=== PATIENT | female | born 1975 | race Caucasian/White ===

== ENCOUNTER 2018-01-22 11:29 | Inpatient (IN) | payer OTHER ==
[2018-01-22 12:58] LABS: Basophils % (A) 0 %; Eosinophils # (A) 0.1 k/uL (0-0.7); Eosinophils % (A) 1 %; HCT 43.2 % (34.0-46.0); Lymphocytes # (A) 0.6 k/uL (1.0-4.8); Lymphocytes % (A) 5 %; MCH 30.8 pg (25.0-35.0); MCHC 34.8 g/dL (31.0-37.0); MCV 88.7 fL (80.0-100.0); Mean Platelet Volume 7.7; Monocytes # (A) 0.3 k/uL (0-1.0); Monocytes % (A) 2 %; Neutrophils % (A) 91 %; Platelet Count 181 k/uL (150-450); RBC 4.87 m/uL (3.80-5.40); RDW 12.8 % (11.5-15.5); WBC 12.1 k/uL (3.8-10.6)
[2018-01-22 13:07] LABS: Appearance,Urine Cloudy (Clear); Bacteria,Urine Moderate /hpf; Bilirubin,Urine Negative (Negative); Blood,Urine Small (Negative); Color,Urine Yellow; Glucose,Urine (UA) Negative (Negative); Ketones,Urine Trace (Negative); Leukocyte Esterase,Urine Large (Negative); Mucus,Urine Occasional /hpf; Nitrite,Urine Negative (Negative); PH, Urine 5.5 (5.0-8.0); Protein,Urine 1+ (Negative); RBC,Urine 4 /hpf (0-5); Squamous Epithelial Cell,Urine 10 /hpf (0-4); Urobilinogen,Urine <2.0 mg/dL (<2.0); WBC,Urine 27 /hpf (0-5)
[2018-01-22 13:11] LABS: ALT 40 U/L (9-52); AST 41 U/L (14-36); Albumin 3.5 g/dL (3.5-5.0); Alkaline Phosphatase 98 U/L (38-126); Amylase <30 U/L (30-110); Anion Gap 11 mmol/L; Blood Urea Nitrogen 17 mg/dL (7-17); Calcium 9.4 mg/dL (8.4-10.2); Carbon Dioxide 25 mmol/L (22-30); Chloride 98 mmol/L (98-107); Glucose 164 mg/dL (74-99); Lipase 17 U/L (23-300); Potassium 2.8 mmol/L (3.5-5.1); Sodium 134 mmol/L (137-145); Total Protein 6.5 g/dL (6.3-8.2)
[2018-01-22] MEDS ORDERED: POTASSIUM CHLORIDE 2 MEQ/ML 20 ML VIAL IV STA (13:33)
[2018-01-22] MEDS ORDERED: PANTOPRAZOLE 40 MG/10 ML VIAL IVP ONE (13:33)
[2018-01-22] MEDS ORDERED: ONDANSETRON 4 MG/2 ML VIAL IVP STA (13:34)
--- NOTE | 2018-01-22 13:51 | XR ---
EXAMINATION TYPE: XR KUB DATE OF EXAM: 01/22/2018 COMPARISON: NONE HISTORY: Left upper quadrant pain TECHNIQUE: One view abdominal series FINDINGS: The osseous structures are intact. The bowel gas pattern is nonspecific. Lung bases are clear. IMPRESSION: 1. Nonspecific abdomen.
[2018-01-22] MEDS: POTASSIUM CHLORIDE 10 MEQ in WATER FOR INJECTION 1 100ML.BAG IVPB SCH ×3 (14:04→17:28)
[2018-01-22] MEDS ORDERED: NALOXONE 0.4 MG/ML 1 ML VIAL IV PRN (14:10)
--- NOTE | 2018-01-22 14:10 | ED ---
Abdominal Pain HPI - General Chief Complaint: Abdominal Pain Stated Complaint: Hematemesis Time Seen by Provider: 01/22/18 12:50 Source: patient, RN notes reviewed Mode of arrival: ambulatory Limitations: no limitations - History of Present Illness Initial Comments: Patient is a pleasant 42-year-old female presenting to the emergency department with hematemesis. Patient does have a history of alcohol use and has been sober for the past approximate 6 months. Patient has been vomiting daily for approximately 6 months. Patient did have a episode of hematemesis around a week ago. Patient has had several episodes today. Patient has discomfort in the epigastric region. - Related Data Home Medications Medication Instructions Recorded Confirmed Budesonide-Formot 160-4.5 Mcg 2 puff INHALATION RT-BID 01/22/18 01/22/18 [Symbicort 160-4.5 Mcg Inhaler] Gabapentin [Neurontin] 300 mg PO TID 01/22/18 01/22/18 Hydrochlorothiazide 25 mg PO DAILY 01/22/18 01/22/18 Metoprolol Succinate [Toprol XL] 25 mg PO DAILY 01/22/18 01/22/18 Topiramate [Topamax] 25 mg PO HS 01/22/18 01/22/18 buPROPion [Wellbutrin] 100 mg PO BID 01/22/18 01/22/18 busPIRone HCL [Buspar] 30 mg PO BID 01/22/18 01/22/18 Allergies Allergy/AdvReac Type Severity Reaction Status Date / Time ELLA Inhibitors Allergy Rash/Hives Verified 01/22/18 13:21 Review of Systems ROS Statement: Those systems with pertinent positive or pertinent negative responses have been documented in the HPI. ROS Other: All systems not noted in ROS Statement are negative. Constitutional: Denies: fever Eyes: Denies: eye pain ENT: Denies: ear pain Respiratory: Denies: cough Cardiovascular: Denies: chest pain Endocrine: Denies: fatigue Gastrointestinal: Reports: abdominal pain, nausea, hematemesis Genitourinary: Denies: dysuria Skin: Denies: rash Neurological: Denies: weakness Past Medical History Past Medical History: Asthma, Hypertension, Liver Disease History of Any Multi-Drug Resistant Organisms: None Reported Past Surgical History: No Surgical Hx Reported Past Psychological History: Anxiety, Depression Smoking Status: Current every day smoker Past Alcohol Use History: None Reported Past Drug Use History: Marijuana General Exam Limitations: no limitations General appearance: alert, in no apparent distress Head exam: Present: atraumatic Eye exam: Present: normal appearance ENT exam: Present: normal oropharynx Neck exam: Present: normal inspection Respiratory exam: Present: normal lung sounds bilaterally Cardiovascular Exam: Present: regular rate, normal rhythm Expanded Peripheral pulses: 2+: Dorsalis Pedis (R), Dorsalis Pedis (L) GI/Abdominal exam: Present: soft, tenderness (Mild epigastric tenderness), normal bowel sounds. Absent: distended, guarding, rebound, rigid, pulsatile mass Extremities exam: Present: normal inspection. Absent: pedal edema, calf tenderness Neurological exam: Present: alert Psychiatric exam: Present: normal affect, normal mood Skin exam: Present: normal color Course Vital Signs 01/22/18 01/22/18 11:39 12:50 Temperature 97.9 F 98.9 F Pulse Rate 70 66 Respiratory 18 18 Rate Blood Pressure 106/69 111/78 O2 Sat by Pulse 99 100 Oximetry Medical Decision Making - Medical Decision Making Patient reevaluated and updated. Case discussed in detail with Dr. Agosto, who will admit for hospital call. - Lab Data Result diagrams: 01/22/18 12:40 01/22/18 12:39 Lab Results 01/22/18 01/22/18 Range/Units 12:39 12:40 WBC 12.1 H (3.8-10.6) k/uL RBC 4.87 (3.80-5.40) m/uL Hgb 15.0 (11.4-16.0) gm/dL Hct 43.2 (34.0-46.0) % MCV 88.7 (80.0-100.0) fL MCH 30.8 (25.0-35.0) pg MCHC 34.8 (31.0-37.0) g/dL RDW 12.8 (11.5-15.5) % Plt Count 181 (150-450) k/uL Neutrophils % 91 % Lymphocytes % 5 % Monocytes % 2 % Eosinophils % 1 % Basophils % 0 % Neutrophils # 11.0 H (1.3-7.7) k/uL Lymphocytes # 0.6 L (1.0-4.8) k/uL Monocytes # 0.3 (0-1.0) k/uL Eosinophils # 0.1 (0-0.7) k/uL Basophils # 0.0 (0-0.2) k/uL Sodium 134 L (137-145) mmol/L Potassium 2.8 L (3.5-5.1) mmol/L Chloride 98 (98-107) mmol/L Carbon Dioxide 25 (22-30) mmol/L Anion Gap 11 mmol/L BUN 17 (7-17) mg/dL Creatinine 0.92 (0.52-1.04) mg/dL Est GFR (CKD-EPI)AfAm 89 (>60 ml/min/1.73 sqM) Est GFR (CKD-EPI)NonAf 77 (>60 ml/min/1.73 sqM) Glucose 164 H (74-99) mg/dL Calcium 9.4 (8.4-10.2) mg/dL Total Bilirubin 1.0 (0.2-1.3) mg/dL AST 41 H (14-36) U/L ALT 40 (9-52) U/L Alkaline Phosphatase 98 (38-126) U/L Total Protein 6.5 (6.3-8.2) g/dL Albumin 3.5 (3.5-5.0) g/dL Amylase <30 L (30-110) U/L Lipase 17 L (23-300) U/L - Radiology Data Radiology results: image reviewed (Nonspecific abdomen) Disposition Clinical Impression: Hematemesis Disposition: ADMITTED IP TO THIS [facility] Is patient prescribed a controlled substance at d/c from ED?: No Referrals: Nonstaff,Physician [Primary Care Provider] - 1-2 days Decision Time: 14:09
[2018-01-22] MEDS ORDERED: MORPHINE SULFATE 4 MG/ML SYRINGE IVP STA (14:40)
[2018-01-22] MEDS: SODIUM CHLORIDE 0.9% 1,000 ML IV SCH ×2 (14:42→20:10)
[2018-01-22] MEDS ORDERED: Potassium Replacement Protocol 1 EACH MISC MISCELLANE PRN (14:57)
--- NOTE | 2018-01-22 15:10 | P.HPIM ---
History of Present Illness H&P Date: 01/22/18 Chief Complaint: Abdominal pain nausea vomiting The patient is a morbidly obese 43-year-old female with a past medical history of HTN, persistent asthma, GERD, chronic alcoholism with noted abstinence for the last 6 months to presents to the ER via private vehicle with her father complaining of mid epigastric to right upper quadrant abdominal pain rated as moderate with some possible radiation to her lower back, the patient reports that she's had daily episodes of nausea and vomiting since quitting and abstaining from alcohol 6 months ago. More recently over the last 6 days the patient reports increased episodes of nausea or vomiting and decreased ability to take food and fluids and keep it down, she also reports blood tinged emesis and has had subjective fevers chills or night sweats. The patient denies cough or shortness as breath but does report ongoing wheezes and reports using her rescue inhaler at least a few times daily, the patient reports she is compliant with her maintenance Symbicort but does continue to smoke. She denies any chest pain, diarrhea or bright red blood per rectum or dark melanotic stools. The patient also reports ongoing issues with urinary urgency, dysuria and frequency. In the ER the patient had a conference a workup she was noted to be profoundly hypokalemic with a potassium of 2.9, noted leukocytosis of 12.9, blood pressure borderline. Urinalysis suggestive of a UTI but did appear contaminated with increased squamous epithelial cells. KUB inidcated a non specific abdomen Review of Systems Pertinent positives per HPI all other review of systems otherwise negative Past Medical History Past Medical History: Asthma, Hypertension, Liver Disease History of Any Multi-Drug Resistant Organisms: None Reported Past Surgical History: No Surgical Hx Reported Past Psychological History: Anxiety, Depression Smoking Status: Current every day smoker Past Alcohol Use History: None Reported Past Drug Use History: Marijuana Medications and Allergies Home Medications Medication Instructions Recorded Confirmed Type Budesonide-Formot 160-4.5 Mcg 2 puff INHALATION RT-BID 01/22/18 01/22/18 History [Symbicort 160-4.5 Mcg Inhaler] Gabapentin [Neurontin] 300 mg PO TID 01/22/18 01/22/18 History Hydrochlorothiazide 25 mg PO DAILY 01/22/18 01/22/18 History Metoprolol Succinate [Toprol XL] 25 mg PO DAILY 01/22/18 01/22/18 History Topiramate [Topamax] 25 mg PO HS 01/22/18 01/22/18 History buPROPion [Wellbutrin] 100 mg PO BID 01/22/18 01/22/18 History busPIRone HCL [Buspar] 30 mg PO BID 01/22/18 01/22/18 History Allergies Allergy/AdvReac Type Severity Reaction Status Date / Time ELLA Inhibitors Allergy Rash/Hives Verified 01/22/18 13:21 Physical Exam Vitals: Vital Signs Temp Pulse Resp BP Pulse Ox 01/22/18 14:12 98.0 F 55 L 16 105/75 97 01/22/18 12:50 98.9 F 66 18 111/78 100 01/22/18 11:39 97.9 F 70 18 106/69 99 Intake and Output 01/22/18 01/22/18 01/22/18 06:59 14:59 22:59 Other: Weight 81.647 kg Constitutional: No acute distress, conversant, pleasant Eyes: Anicteric sclerae, moist conjunctiva, no lid-lag, PERRLA ENMT: NC/AT,Oropharynx clear, no erythema, exudates, dry mucous membranes Neck:Supple, FROM, no masses, or JVD, No carotid bruits; No thyromegaly Lungs: Clear to auscultation, Clear to percussion, Normal respiratory effort, no accessory muscle use Cardiovascular: Heart regular in rate and rhythm, No murmurs, gallops, or rubs no peripheral edema Abdominal: Tender palpation in midepigastrium, nom distended, no guarding, no rebound or rigidity, Normoactive bowel sounds No hepatomegaly, No splenomegaly , negative Jeter's, noted CVA tenderness Skin: Normal temperature, tone, texture, turgor, No induration No subcutaneous nodules, No rash, lesions, No ulcers, increased skin tenting Extremities:No digital cyanosis No clubbing, Pedal pulses intact and symmetrical Radial pulses intact and symmetrical Normal gait and station, No calf tenderness Psychiatric: Alert and oriented to person, place and time, Appropriate affect Intact judgement Neuro: Muscles Strength 5/5 in all 4 extremities, Sensation to light touch grossly present throughout, Cranial nerves II-XII grossly intact. No focal sensory deficits Results CBC & Chem 7: 01/22/18 12:40 01/22/18 12:39 Labs: Abnormal Lab Results - Last 24 Hours (Table) 01/22/18 01/22/18 01/22/18 Range/Units 12:39 12:40 12:40 WBC 12.1 H (3.8-10.6) k/uL Neutrophils # 11.0 H (1.3-7.7) k/uL Lymphocytes # 0.6 L (1.0-4.8) k/uL Sodium 134 L (137-145) mmol/L Potassium 2.8 L (3.5-5.1) mmol/L Glucose 164 H (74-99) mg/dL AST 41 H (14-36) U/L Amylase <30 L (30-110) U/L Lipase 17 L (23-300) U/L Urine Appearance Cloudy H (Clear) Urine Protein 1+ H (Negative) Urine Ketones Trace H (Negative) Urine Blood Small H (Negative) Ur Leukocyte Esterase Large H (Negative) Urine WBC 27 H (0-5) /hpf Ur Squamous Epith Cells 10 H (0-4) /hpf Urine Bacteria Moderate H (None) /hpf Urine Mucus Occasional H (None) /hpf Assessment and Plan Assessment: Chronic medical issues GERD Tobacco dependence History of chronic alcoholism non-remission for 6 months Asthma (1) Sepsis Current Visit: Yes Status: Acute Code(s): A41.9 - SEPSIS, UNSPECIFIED ORGANISM SNOMED Code(s): 64339383 (2) Intractable nausea and vomiting Current Visit: Yes Status: Acute Code(s): R11.2 - NAUSEA WITH VOMITING, UNSPECIFIED SNOMED Code(s): 781884117 (3) UTI (urinary tract infection) Current Visit: Yes Status: Acute Code(s): N39.0 - URINARY TRACT INFECTION, SITE NOT SPECIFIED SNOMED Code(s): 51270224 (4) Hypokalemia Current Visit: Yes Status: Acute Code(s): E87.6 - HYPOKALEMIA SNOMED Code( s): 94211513 (5) Asthma exacerbation Current Visit: Yes Status: Acute Code(s): J45.901 - UNSPECIFIED ASTHMA WITH (ACUTE) EXACERBATION SNOMED Code(s): 237594432 (6) Abdominal pain Current Visit: Yes Status: Acute Code(s): R10.9 - UNSPECIFIED ABDOMINAL PAIN SNOMED Code(s): 74743694 (7) Hematemesis Current Visit: Yes Status: Acute Code(s): K92.0 - HEMATEMESIS SNOMED Code( s): 8243045 Plan: The patient is admitted to the medical floor anticipated less than 2 midnight stay after presenting with intractable nausea vomiting, concern for underlying UTI possible pyelonephritis as the cause of her symptoms patient does have a mild leukocytosis, but is otherwise afebrile, blood pressure is borderline will bolus her 2 L, check a serum lactate level and started on empiric IV antibiotics with IV Rocephin, will also repeat a urinalysis were with reflex culture. The patient is also treated for an asthma exacerbation with IV steroids and scheduled bronchodilator DuoNeb breathing treatments. GI has been consulted regarding the patient's hematemesis to evaluate for need for possible EGD given her history of chronic alcoholism previously. A CT abdomen and pelvis is ordered to possibly further characterize any intra-abdominal pathology. We' ll continue with supportive therapy with antiemetics Zofran and pain medication morphine. Will plan to replace the patient's potassium and station on potassium replacement protocol, will check magnesium level and replace if needed. The patient is continue on PPI therapy With SCDs for DVT prophylaxis CODE STATUS full code Discussed plan of care with : Patient and her parents Anticipated discharge 1-2 days
[2018-01-22] MEDS ORDERED: SODIUM CHLORIDE 0.9% 2,000 ML IV ONE (15:16)
[2018-01-22] MEDS ORDERED: methylPREDNISolone SOD SUCCI 125 MG/2 ML VIAL IV STA (15:18)
--- NOTE | 2018-01-22 15:37 | XR ---
EXAMINATION TYPE: XR chest 2V DATE OF EXAM: 01/22/2018 COMPARISON: NONE TECHNIQUE: PA and lateral views submitted. HISTORY: None FINDINGS: The lungs are clear and there is no pneumothorax, pleural effusion, or focal pneumonia. IMPRESSION: 1. No acute process.
--- NOTE | 2018-01-22 15:56 | CT ---
EXAMINATION TYPE: CT abdomen pelvis wo con DATE OF EXAM: 01/22/2018 COMPARISON: Abdomen same date HISTORY: Left flank pain with nausea. CT DLP: 531.5 mGycm Automated exposure control for dose reduction was used. TECHNIQUE: Helical acquisition of images from the lung bases through the pelvis. FINDINGS: Lack of intravenous contrast could compromise sensitivity. LUNG BASES: No significant abnormality is appreciated. Minimal dependent atelectatic changes are pres ent. AORTA: No significant abnormality is appreciated. LIVER/GB: No significant abnormality is appreciated. PANCREAS: No significant abnormality is seen. SPLEEN: No significant abnormality is seen. ADRENALS: No significant abnormality is seen. KIDNEYS: Left kidney shows some perinephric stranding. No evident hydronephrosis. At the level of the distal left ureter there is a punctate calcification which could possibly be within the distal urete r REPRODUCTIVE ORGANS: Intrauterine contraceptive device is present, ovaries are unremarkable URINARY BLADDER: No significant abnormality is seen. BOWEL: No significant abnormality is seen. FREE AIR: No Free Air is visible. ASCITES: None visible. PELVIC ADENOPATHY: None visualized. RETROPERITONEAL ADENOPATHY: No Retroperitoneal Adenopathy visible. OSSEOUS STRUCTURES: No significant abnormality is seen. IMPRESSION: NONCONTRAST EXAM. PERINEPHRIC INFLAMMATORY CHANGES, DIFFICULT TO EXCLUDE A DISTAL URETERAL CALCULUS, CORRELATE FOR POSSIBLE PYELONEPHRITIS, FOLLOW-UP INDICATED
[2018-01-22 15:58] LABS: Magnesium 2.6 mg/dL (1.6-2.3)
[2018-01-22] MEDS: IPRATROPIUM-ALBUTEROL 3 ML NEB INHALATION SCH ×3 (16:57→23:45)
[2018-01-22 17:05] LABS: Appearance,Urine Clear (Clear); Bacteria,Urine Many /hpf; Bilirubin,Urine Negative (Negative); Blood,Urine Small (Negative); Color,Urine Light Yellow; Glucose,Urine (UA) Negative (Negative); Ketones,Urine Negative (Negative); Leukocyte Esterase,Urine Small (Negative); Nitrite,Urine Negative (Negative); Protein,Urine 1+ (Negative); RBC,Urine <1 /hpf (0-5); Specific Gravity,Urine 1.006 (1.001-1.035); Urobilinogen,Urine <2.0 mg/dL (<2.0)
[2018-01-22] MEDS: MORPHINE SULFATE 4 MG/ML SYRINGE IVP PRN (18:31)
[2018-01-22 18:44] VITALS: BMI 30.9
[2018-01-22] MEDS: ONDANSETRON 4 MG/2 ML VIAL IVP PRN (18:54)
[2018-01-22] MEDS: methylPREDNISolone SOD SUCCI 125 MG/2 ML VIAL IV SCH (20:10)
[2018-01-23] MEDS: MORPHINE SULFATE 4 MG/ML SYRINGE IVP PRN ×4 (00:52→20:53)
[2018-01-23] MEDS: ONDANSETRON 4 MG/2 ML VIAL IVP PRN ×2 (02:44→11:09)
[2018-01-23] MEDS: IPRATROPIUM-ALBUTEROL 3 ML NEB INHALATION SCH ×5 (03:29→19:53)
[2018-01-23] MEDS: SODIUM CHLORIDE 0.9% 1,000 ML IV SCH ×2 (06:08→12:37)
[2018-01-23] MEDS: methylPREDNISolone SOD SUCCI 125 MG/2 ML VIAL IV SCH (07:43)
[2018-01-23] MEDS ORDERED: PANTOPRAZOLE 40 MG/10 ML VIAL IV SCH (09:00)
[2018-01-23 09:48] LABS: Basophils % (A) 0 %; Eosinophils # (A) 0.1 k/uL (0-0.7); Eosinophils % (A) 1 %; HCT 40.8 % (34.0-46.0); HGB 13.5 gm/dL (11.4-16.0); Lymphocytes # (A) 0.7 k/uL (1.0-4.8); Lymphocytes % (A) 7 %; MCH 30.1 pg (25.0-35.0); Mean Platelet Volume 8.3; Monocytes # (A) 0.2 k/uL (0-1.0); Monocytes % (A) 2 %; Neutrophils # (A) 8.5 k/uL (1.3-7.7); Neutrophils % (A) 90 %; Platelet Count 176 k/uL (150-450); RBC 4.48 m/uL (3.80-5.40); RDW 13.2 % (11.5-15.5); WBC 9.4 k/uL (3.8-10.6)
[2018-01-23 09:51] LABS: ALT 32 U/L (9-52); AST 24 U/L (14-36); Albumin 3.1 g/dL (3.5-5.0); Alkaline Phosphatase 78 U/L (38-126); Anion Gap 9 mmol/L; Blood Urea Nitrogen 11 mg/dL (7-17); Calcium 9.4 mg/dL (8.4-10.2); Carbon Dioxide 24 mmol/L (22-30); Chloride 108 mmol/L (98-107); Glucose 152 mg/dL (74-99); Potassium 2.9 mmol/L (3.5-5.1); Sodium 141 mmol/L (137-145); Total Bilirubin 0.5 mg/dL (0.2-1.3); Total Protein 5.8 g/dL (6.3-8.2)
[2018-01-23] MEDS: POTASSIUM CHLORIDE ER 20 MEQ TAB.ER PO SCH ×6 (11:29→20:53)
[2018-01-23] MEDS: buPROPion 100 MG TAB PO SCH ×2 (12:07→20:53)
[2018-01-23] MEDS: busPIRone HCl 10 MG TAB PO SCH ×2 (12:07→20:52)
--- NOTE | 2018-01-23 13:23 | P.PN ---
Subjective Progress Note Date: 01/23/18 The patient reports her breathing is much better today and is no longer wheezing , also reports some improvement in her nausea, does have mild abdominal pain today, CVA tenderness is also improved. Patient afebrile overnight. No acute events reported Objective - Vital Signs Vital signs: Vital Signs Temp 97.1 F L 01/23/18 07:00 Pulse 60 01/23/18 11:35 Resp 18 01/23/18 07:00 BP 111/67 01/23/18 07:00 Pulse Ox 97 01/23/18 07:00 Intake & Output 01/22/18 01/23/18 01/23/18 18:59 06:59 18:59 Intake Total 0 Balance 0 Weight 81.647 kg 81.647 kg Intake: Oral 0 Other: Voiding Method Toilet # Voids 1 2 - Exam Constitutional: No acute distress, conversant, pleasant Eyes: Anicteric sclerae, moist conjunctiva, no lid-lag, PERRLA ENMT: NC/AT,Oropharynx clear, no erythema, exudates Neck:Supple, FROM, no masses, or JVD, No carotid bruits; No thyromegaly Lungs: Clear to auscultation, Clear to percussion, Normal respiratory effort, no accessory muscle use Cardiovascular: Heart regular in rate and rhythm, No murmurs, gallops, or rubs no peripheral edema Abdominal: Bilateral CVA tenderness, Soft tender only to deep palpation, nom distended, no guarding, no rebound or rigidity, Normoactive bowel sounds No hepatomegaly, No splenomegaly, No palpable mass No abdominal wall hernia noted Skin: Normal temperature, tone, texture, turgor, No induration No subcutaneous nodules, No rash, lesions, No ulcers Extremities:No digital cyanosis No clubbing, Pedal pulses intact and symmetrical Radial pulses intact and symmetrical Normal gait and station, No calf tenderness Psychiatric: Alert and oriented to person, place and time, Appropriate affect Intact judgement Neuro: Muscles Strength 5/5 in all 4 extremities, Sensation to light touch grossly present throughout, Cranial nerves II-XII grossly intact. No focal sensory deficits - Labs CBC & Chem 7: 01/23/18 09:00 01/23/18 09:00 Labs: Abnormal Lab Results - Last 24 Hours (Table) 01/22/18 01/22/18 01/22/18 Range/Units 12:39 12:40 16:08 Neutrophils # (1.3-7.7) k/uL Lymphocytes # (1.0-4.8) k/uL Sodium 134 L (137-145) mmol/L Potassium 2.8 L (3.5-5.1) mmol/L Chloride (98-107) mmol/L Glucose 164 H (74-99) mg/dL Magnesium 2.6 H (1.6-2.3) mg/dL AST 41 H (14-36) U/L Total Protein (6.3-8.2) g/dL Albumin (3.5-5.0) g/dL Amylase <30 L (30-110) U/L Lipase 17 L (23-300) U/L Urine Appearance Cloudy H (Clear) Urine Protein 1+ H 1+ H (Negative) Urine Ketones Trace H (Negative) Urine Blood Small H Small H (Negative) Ur Leukocyte Esterase Large H Small H (Negative) Urine WBC 27 H 8 H (0-5) /hpf Ur Squamous Epith Cells 10 H (0-4) /hpf Urine Bacteria Moderate H Many H (None) /hpf Urine Mucus Occasional H (None) /hpf 01/23/18 01/23/18 Range/Units 09:00 09:00 Neutrophils # 8.5 H (1.3-7.7) k/uL Lymphocytes # 0.7 L (1.0-4.8) k/uL Sodium (137-145) mmol/L Potassium 2.9 L (3.5-5.1) mmol/L Chloride 108 H (98-107) mmol/L Glucose 152 H (74-99) mg/dL Magnesium (1.6-2.3) mg/dL AST (14-36) U/L Total Protein 5.8 L (6.3-8.2) g/dL Albumin 3.1 L (3.5-5.0) g/dL Amylase (30-110) U/L Lipase (23-300) U/L Urine Appearance (Clear) Urine Protein (Negative) Urine Ketones (Negative) Urine Blood (Negative) Ur Leukocyte Esterase (Negative) Urine WBC (0-5) /hpf Ur Squamous Epith Cells (0-4) /hpf Urine Bacteria (None) /hpf Urine Mucus (None) /hpf Microbiology - Last 24 Hours (Table) 01/22/18 16:08 Urine Culture - Preliminary Urine,Clean Catch Assessment and Plan (1) Sepsis Narrative/Plan: * Afebrile leukocytosis resolved * Secondary to acute pyelonephritis, urine culture pending * Continue empiric treatment with IV antibiotics Rocephin Current Visit: Yes Status: Acute Code(s): A41.9 - SEPSIS, UNSPECIFIED ORGANISM SNOMED Code(s): 22528731 (2) Pyelonephritis Narrative/Plan: * urine cultures are pending, * CT abdomen and pelvis suggestive of perinephric stranding Current Visit: Yes Status: Acute Code(s): N12 - TUBULO-INTERSTITIAL NEPHRITIS, NOT SPCF ACUTE OR CHRONIC SNOMED Code(s): 21717397 (3) Intractable nausea and vomiting Narrative/Plan: * Secondary to acute pyelonephritis * We'll plan to advance to clear liquid diet today Current Visit: Yes Status: Acute Code(s): R11.2 - NAUSEA WITH VOMITING, UNSPECIFIED SNOMED Code(s): 506707033 (4) Hypokalemia Narrative/Plan: * Patient's potassium 2.9 this morning continue with potassium replacement protocol Current Visit: Yes Status: Acute Code(s): E87.6 - HYPOKALEMIA SNOMED Code( s): 95819278 (5) Asthma exacerbation Narrative/Plan: * Wheezes are resolved we'll switch from IV steroids to prednisone * Continuous scheduled bronchodilator DuoNeb breathing treatments * Likely triggered by sepsis Current Visit: Yes Status: Acute Code(s): J45.901 - UNSPECIFIED ASTHMA WITH (ACUTE) EXACERBATION SNOMED Code(s): 903595158 (6) Abdominal pain Current Visit: Yes Status: Acute Code(s): R10.9 - UNSPECIFIED ABDOMINAL PAIN SNOMED Code(s): 98491413 (7) Hematemesis Narrative/Plan: * GI consulted from ER awaiting further recommendations Current Visit: Yes Status: Acute Code(s): K92.0 - HEMATEMESIS SNOMED Code( s): 4562666 Plan: * Patient is much improved clinically but continues to be profoundly hypokalemic we'll replace and follow up urine cultures * Continue empiric IV antibiotics * Continue treatment for acute asthma exacerbation * Anticipated discharge once 2 days
--- NOTE | 2018-01-23 14:57 | P.CONS ---
History of Present Illness - Reason for Consult Consult date: 01/23/18 GI bleed hematemesis Requesting physician: Andrei Agosto - Chief Complaint hematemesis - History of Present Illness 42-year-old female recovering alcoholic and quit 6-8 months underlying GERD chronic daily emesis ago presents with acute hematemesis midepigastric discomfort. Patient had 1 alcoholic drink about 2 weeks ago. Presents yesterday with acute hematemesis several episodes describes is streaks of red in her emesis without clots. She had an isolated episode of pink tinged emesis a week ago. She takes Motrin on a daily basis 3 times daily for generalized pain. No aspirin or other NSAID usage. Last EGD done her memory was 2 years ago; no evidence of esophageal varices. She was advised PPI therapy daily but has not and taking it. Admission white count 12.1 currently 9.4. Hemoglobin 15 currently 13.5. BUN 17 creatinine 0.9. Total bilirubin 1.0. AST 41. ALT 40. AP 98. Urinalysis small amount of blood large leukocyte esterase and many bacteria urine culture in progress. No episodes of hematemesis since admission. He denies melena or hematochezia. Present he tolerated clear liquids. Minimal epigastric discomfort. CT abdomen and pelvis. Nephrotic inflammatory changes difficult to exclude distal ureteral calculus. Possible pyelonephritis. Review of Systems Constitutional: Denies fever, chills, sweats, weight gain, or loss. HEENT: Negative for migraines, blurred vision or loss, earaches, drainage, tinnitus, oral mucosal lesions, dysphagia, or odynophagia. CARDIAC: Negative for chest pain, arrhythmias, or palpitation. RESPIRATORY: Negative for shortness of breath, hemoptysis, cough, or sputum production. GI: See HPI for pertinent findings. : Negative for hematuria, urgency, frequency, polyuria, or dysuria. GYNc: Denies possibility of . Negative vaginal discharge. MUSCULOSKELETAL: Negative for muscle aches, swelling, arthritis, and arthralgias. NEUROLOGIC: Negative for stroke or TIA. ENDOCRINE: Negative for thyroid problems. SKIN: Negative for rash or itching. PSYCHIATRIC: Negative history for depression and anxiety Past Medical History Past Medical History: Asthma, Hypertension, Liver Disease Additional Past Medical History / Comment(s): alcoholic neuropathy. ETOH- quit in 07/2017. History of Any Multi-Drug Resistant Organisms: None Reported Past Surgical History: No Surgical Hx Reported Past Psychological History: Anxiety, Depression Smoking Status: Current every day smoker Past Alcohol Use History: None Reported Past Drug Use History: Marijuana Medications and Allergies Home Medications Medication Instructions Recorded Confirmed Type Budesonide-Formot 160-4.5 Mcg 2 puff INHALATION RT-BID 01/22/18 01/22/18 History [Symbicort 160-4.5 Mcg Inhaler] Gabapentin [Neurontin] 300 mg PO TID 01/22/18 01/22/18 History Hydrochlorothiazide 25 mg PO DAILY 01/22/18 01/22/18 History Metoprolol Succinate [Toprol XL] 25 mg PO DAILY 01/22/18 01/22/18 History Topiramate [Topamax] 25 mg PO HS 01/22/18 01/22/18 History buPROPion [Wellbutrin] 100 mg PO BID 01/22/18 01/22/18 History busPIRone HCL [Buspar] 30 mg PO BID 01/22/18 01/22/18 History Allergies Allergy/AdvReac Type Severity Reaction Status Date / Time ELLA Inhibitors Allergy Rash/Hives Verified 01/22/18 13:21 Physical Exam Vitals: Vital Signs Temp Pulse Pulse Resp BP BP Pulse Ox 01/23/18 11:35 60 01/23/18 11:23 60 01/23/18 08:06 60 01/23/18 07:55 60 01/23/18 07:00 97.1 F L 60 18 111/67 97 01/23/18 03:47 50 L 01/23/18 03:29 47 L 01/22/18 23:57 60 01/22/18 23:45 60 01/22/18 23:00 97.8 F 60 18 105/73 95 01/22/18 21:00 72 01/22/18 20:46 88 01/22/18 19:26 98.5 F 01/22/18 18:21 99.8 F H 78 16 113/68 97 01/22/18 17:33 98.0 F 75 16 123/74 97 01/22/18 17:07 60 01/22/18 17:00 60 01/22/18 16:00 60 16 103/69 100 01/22/18 15:00 105/75 Intake and Output 1201/23/18 01/23/18 22:59 06:59 14:59 Intake Total 0 Balance 0 Intake: Oral 0 Other: Voiding Method Toilet # Voids 3 2 Weight 81.647 kg General appearance: The patient is alert, oriented, in no acute distress. HET: Head is normocephalic and atraumatic. Pupils are equal and reactive. Oropharynx is clear without lesions. Neck: Supple without lymphadenopathy. Trachea midline. Heart: S1 S2. Regular rate and rhythm. Lungs: No crackles or wheezes are heard. Abdomen: Soft, mild midepigastric tenderness, nondistended with bowel sounds. No peritoneal signs. No palpable organomegaly or masses. Extremities: Normal skin color and turgor. No cyanosis, rash, ulceration, clubbing, or edema. Radial and pedal pulses are 2/4 bilaterally. Neurological: No focal deficits. Strength and sensation are grossly intact. Results CBC & Chem 7: 01/23/18 09:00 01/23/18 09:00 Labs: Abnormal Lab Results - Last 24 Hours (Table) 01/22/18 01/22/18 01/23/18 Range/Units 12:39 16:08 09:00 Neutrophils # 8.5 H (1.3-7.7) k/uL Lymphocytes # 0.7 L (1.0-4.8) k/uL Sodium 134 L (137-145) mmol/L Potassium 2.8 L (3.5-5.1) mmol/L Chloride (98-107) mmol/L Glucose 164 H (74-99) mg/dL Magnesium 2.6 H (1.6-2.3) mg/dL AST 41 H (14-36) U/L Total Protein (6.3-8.2) g/dL Albumin (3.5-5.0) g/dL Amylase <30 L (30-110) U/L Lipase 17 L (23-300) U/L Urine Protein 1+ H (Negative) Urine Blood Small H (Negative) Ur Leukocyte Esterase Small H (Negative) Urine WBC 8 H (0-5) /hpf Urine Bacteria Many H (None) /hpf 01/23/18 Range/Units 09:00 Neutrophils # (1.3-7.7) k/uL Lymphocytes # (1.0-4.8) k/uL Sodium (137-145) mmol/L Potassium 2.9 L (3.5-5.1) mmol/L Chloride 108 H (98-107) mmol/L Glucose 152 H (74-99) mg/dL Magnesium (1.6-2.3) mg/dL AST (14-36) U/L Total Protein 5.8 L (6.3-8.2) g/dL Albumin 3.1 L (3.5-5.0) g/dL Amylase (30-110) U/L Lipase (23-300) U/L Urine Protein (Negative) Urine Blood (Negative) Ur Leukocyte Esterase (Negative) Urine WBC (0-5) /hpf Urine Bacteria (None) /hpf Microbiology - Last 24 Hours (Table) 01/22/18 16:08 Urine Culture - Preliminary Urine,Clean Catch CT scan - abdomen: report reviewed (Dr. Duenas) Assessment and Plan (1) Hematemesis Narrative/Plan: 42-year-old female with a history of GERD, chronic NSAID use EtOH abuse presents with acute hematemesis receiving treatment for pyelonephritis. Possible peptic ulcer disease. Underlying esophageal varices could not be excluded with history of alcoholism. Current Visit: Yes Status: Acute Code(s): K92.0 - HEMATEMESIS SNOMED Code( s): 4234429 (2) H/O ETOH abuse Current Visit: Yes Status: Acute Code(s): Z87.898 - PERSONAL HISTORY OF OTHER SPECIFIED CONDITIONS SNOMED Code(s): 035219254 (3) Pyelonephritis Current Visit: Yes Status: Acute Code(s): N12 - TUBULO-INTERSTITIAL NEPHRITIS, NOT SPCF ACUTE OR CHRONIC SNOMED Code(s): 74004556 Plan: 1. Clear liquids nothing by mouth after midnight. EGD evaluation tomorrow. CBC monitoring. Protonic 40 mg IV twice daily. Alcohol abstinence reinforced. We'll follow with you. The hog scraper has discussed the risks, benefits and alternative therapies for the above-mentioned procedure and for both sedation/analgesia as well as necessary blood product administration, if indicated, as they pertain to this patient. The patient has indicated understanding and acceptance of the risks and procedures discussed. Thank you for this kind referral and the opportunity to participate in the care of your patient. This consultation was discussed with Dr. Duenas. The impression and plan of care have been directed as dictated.
[2018-01-23] MEDS: GABAPENTIN 300 MG CAP PO SCH ×2 (16:35→20:52)
[2018-01-23] MEDS: TOPIRAMATE 25 MG TAB PO SCH (20:53)
[2018-01-23] MEDS: PANTOPRAZOLE 40 MG/10 ML VIAL IV SCH (20:56)
[2018-01-23] MEDS ORDERED: busPIRone HCl 10 MG TAB PO SCH (21:00)
[2018-01-23] MEDS ORDERED: buPROPion 100 MG TAB PO SCH (21:00)
[2018-01-24] MEDS: ONDANSETRON 4 MG/2 ML VIAL IVP PRN ×3 (00:43→17:09)
[2018-01-24] MEDS: IPRATROPIUM-ALBUTEROL 3 ML NEB INHALATION SCH ×6 (01:00→21:08)
[2018-01-24] MEDS: SODIUM CHLORIDE 0.9% 1,000 ML IV SCH ×3 (01:24→15:58)
[2018-01-24] MEDS: MORPHINE SULFATE 4 MG/ML SYRINGE IVP PRN ×4 (04:46→23:45)
[2018-01-24] MEDS: PANTOPRAZOLE 40 MG/10 ML VIAL IV SCH (08:25)
[2018-01-24] MEDS: GABAPENTIN 300 MG CAP PO SCH ×3 (08:26→22:04)
[2018-01-24] MEDS: buPROPion 100 MG TAB PO SCH ×2 (08:26→23:43)
[2018-01-24] MEDS: predniSONE 50 MG TAB PO SCH (08:26)
[2018-01-24] MEDS: busPIRone HCl 10 MG TAB PO SCH ×2 (08:26→22:01)
[2018-01-24] MEDS ORDERED: PROPOFOL 10 MG/ML 20 ML VIAL IV ONE (14:20)
[2018-01-24] MEDS ORDERED: LIDOCAINE 1% INJ 10MG/ML (20 ML MDV) ONE (14:20)
[2018-01-24] MEDS ORDERED: IV FLUID CONTINUATION 1,000 ML IV ONE (14:32)
--- NOTE | 2018-01-24 15:08 | P.PCN ---
Date of Procedure: 01/24/18 Description of Procedure: BRIEF HISTORY:42-year-old female recovering alcoholic and quit 6-8 months underlying GERD chronic daily emesis ago presents with acute hematemesis midepigastric discomfort. Patient had 1 alcoholic drink about 2 weeks ago. Presents yesterday with acute hematemesis several episodes describes is streaks of red in her emesis without clots. She had an isolated episode of pink tinged emesis a week ago. She takes Motrin on a daily basis 3 times daily for generalized pain. No aspirin or other NSAID usage. Last EGD done her memory was 2 years ago; no evidence of esophageal varices. She was advised PPI therapy daily but has not and taking it. Hemoglobin 15 currently 13.5. PROCEDURE PERFORMED: Esophagogastroduodenoscopy with biopsy. PREOPERATIVE DIAGNOSIS: Hematemesis, history of alcohol abuse, abdominal pain. ESTIMATED BLOOD LOSS: Minimal. IV sedation per anesthesia. PROCEDURE: After informed consent was obtained, the patient was brought into the endoscopy unit. IV sedation was administered by Anesthesia under continuous monitoring. Initially the Olympus GIF-190 video endoscope was inserted into the mouth. Esophagus intubated without any difficulty. It was gradually advanced into the stomach and duodenum and carefully examined. The bulb and the second part of the duodenum appeared normal, with biopsies taken. History of abdominal pain celiac disease. The scope at this time was withdrawn to the stomach, adequately insufflated with air, and upon careful examination, mucosa of the antrum, body, cardia and the fundus appeared normal, with some mild erythema in the antrum and body which was biopsied suggestive of gastritis. The scope was then withdrawn into the esophagus. The GE junction was located at 39 cm from the incisors with biopsies taken. The esophagus appeared normal. There were no erosions or ulcerations seen and the patient tolerated the procedure well. IMPRESSION: 1. No evidence of active bleed or pathology to explain hematemesis. 2. Gastritis, biopsied. GE junction biopsies. RECOMMENDATIONS: The findings of this examination were discussed with the patient. Continue Protonix therapy, okay for diet. Follow-up pathology. Follow up with gastroenterology in the outpatient setting in 1-2 weeks
[2018-01-24] MEDS: PANTOPRAZOLE 40 MG TABLET PO SCH (15:59)
--- NOTE | 2018-01-24 16:46 | P.PN ---
Subjective Progress Note Date: 01/24/18 The patient reports her breathing is much better today and is no longer wheezing , also reports some improvement in her nausea, does have mild abdominal pain today, CVA tenderness is also improved. Patient afebrile overnight. No acute events reported Objective - Vital Signs Vital signs: Vital Signs Temp 97.6 F 01/24/18 15:00 Pulse 68 01/24/18 16:21 Resp 18 01/24/18 15:00 BP 165/97 01/24/18 15:00 Pulse Ox 98 01/24/18 15:00 Intake & Output 01/23/18 01/24/18 01/24/18 18:59 06:59 18:59 Intake Total 1210 Balance 1210 Intake: IV 1210 Sodium Chloride 0.9% 1, 960 000 ml @ 120 mls/hr IV . Q8H20M [facility] Rx#:[id number] cefTRIAXone 1,000 mg In 50 Sodium Chloride 0.9% 50 ml @ 100 mls/hr IVPB Q24HR [facility] Rx#:[id number] Other: Voiding Method Toilet Toilet # Voids 3 4 - Exam Constitutional: No acute distress, conversant, pleasant Eyes: Anicteric sclerae, moist conjunctiva, no lid-lag, PERRLA ENMT: NC/AT,Oropharynx clear, no erythema, exudates Neck:Supple, FROM, no masses, or JVD, No carotid bruits; No thyromegaly Lungs: Clear to auscultation, Clear to percussion, Normal respiratory effort, no accessory muscle use Cardiovascular: Heart regular in rate and rhythm, No murmurs, gallops, or rubs no peripheral edema Abdominal: Bilateral CVA tenderness, Soft tender only to deep palpation, nom distended, no guarding, no rebound or rigidity, Normoactive bowel sounds No hepatomegaly, No splenomegaly, No palpable mass No abdominal wall hernia noted Skin: Normal temperature, tone, texture, turgor, No induration No subcutaneous nodules, No rash, lesions, No ulcers Extremities:No digital cyanosis No clubbing, Pedal pulses intact and symmetrical Radial pulses intact and symmetrical Normal gait and station, No calf tenderness Psychiatric: Alert and oriented to person, place and time, Appropriate affect Intact judgement Neuro: Muscles Strength 5/5 in all 4 extremities, Sensation to light touch grossly present throughout, Cranial nerves II-XII grossly intact. No focal sensory deficits - Labs CBC & Chem 7: 01/23/18 09:00 01/24/18 03:14 Labs: Microbiology - Last 24 Hours (Table) 01/22/18 16:08 Urine Culture - Preliminary Urine,Clean Catch Gram Neg Bacilli Assessment and Plan (1) Sepsis Narrative/Plan: * Afebrile leukocytosis resolved * Secondary to acute pyelonephritis, urine culture pending * Continue empiric treatment with IV antibiotics Rocephin Current Visit: Yes Status: Acute Code(s): A41.9 - SEPSIS, UNSPECIFIED ORGANISM SNOMED Code(s): 35008164 (2) Pyelonephritis Narrative/Plan: * urine cultures preliminary G neg bacilli * CT abdomen and pelvis suggestive of perinephric stranding Current Visit: Yes Status: Acute Code(s): N12 - TUBULO-INTERSTITIAL NEPHRITIS, NOT SPCF ACUTE OR CHRONIC SNOMED Code(s): 01579331 (3) Asthma exacerbation Narrative/Plan: * Wheezes are resolved we'll switch from IV steroids to prednisone * Continuous scheduled bronchodilator DuoNeb breathing treatments * Likely triggered by sepsis Current Visit: Yes Status: Acute Code(s): J45.901 - UNSPECIFIED ASTHMA WITH (ACUTE) EXACERBATION SNOMED Code(s): 921891652 (4) Acute gastritis Current Visit: Yes Status: Acute Code(s): K29.00 - ACUTE GASTRITIS WITHOUT BLEEDING SNOMED Code(s): 04083896 (5) Hematemesis Narrative/Plan: * GI consulted from ER awaiting further recommendations Current Visit: Yes Status: Acute Code(s): K92.0 - HEMATEMESIS SNOMED Code( s): 2394315 (6) Hypokalemia Narrative/Plan: * Patient's potassium 2.9 this morning continue with potassium replacement protocol Current Visit: Yes Status: Acute Code(s): E87.6 - HYPOKALEMIA SNOMED Code( s): 62594852 (7) Abdominal pain Current Visit: Yes Status: Acute Code(s): R10.9 - UNSPECIFIED ABDOMINAL PAIN SNOMED Code(s): 02860708 (8) Intractable nausea and vomiting Narrative/Plan: * Secondary to acute pyelonephritis * We'll plan to advance to clear liquid diet today Current Visit: Yes Status: Acute Code(s): R11.2 - NAUSEA WITH VOMITING, UNSPECIFIED SNOMED Code(s): 983984788
[2018-01-24] MEDS: TOPIRAMATE 25 MG TAB PO SCH (22:01)
[2018-01-25] MEDS: IPRATROPIUM-ALBUTEROL 3 ML NEB INHALATION SCH ×4 (00:33→12:53)
[2018-01-25 05:43] VITALS: BP 123/65; RESP 16; TEMP 98
[2018-01-25] MEDS: MORPHINE SULFATE 4 MG/ML SYRINGE IVP PRN (05:55)
[2018-01-25] MEDS: ONDANSETRON 4 MG/2 ML VIAL IVP PRN (05:56)
[2018-01-25] MEDS: SODIUM CHLORIDE 0.9% 1,000 ML IV SCH ×2 (06:45→10:42)
[2018-01-25] MEDS: buPROPion 100 MG TAB PO SCH (08:09)
[2018-01-25] MEDS: predniSONE 50 MG TAB PO SCH (08:09)
[2018-01-25] MEDS: PANTOPRAZOLE 40 MG TABLET PO SCH (08:09)
[2018-01-25] MEDS: GABAPENTIN 300 MG CAP PO SCH (08:10)
[2018-01-25] MEDS: busPIRone HCl 10 MG TAB PO SCH (08:10)
--- NOTE | 2018-01-25 11:33 | P.DS ---
Providers Date of admission: 01/23/18 14:53 Expected date of discharge: 01/25/18 Attending physician: Andrei Agosto MD Consults: 01/22/18 14:10 Consult Physician Urgent Consulting Provider: Nick Johnson Consult Reason/Comments: Hematemesis Do you want consulting provider notified?: Yes Primary care physician: Physician Nonstaff - Discharge Diagnosis(es) (1) Sepsis Current Visit: Yes Status: Acute (2) Pyelonephritis Current Visit: Yes Status: Acute (3) Asthma exacerbation Current Visit: Yes Status: Acute (4) Acute gastritis Current Visit: Yes Status: Acute (5) Hematemesis Current Visit: Yes Status: Acute (6) Hypokalemia Current Visit: Yes Status: Acute (7) Abdominal pain Current Visit: Yes Status: Acute (8) Intractable nausea and vomiting Current Visit: Yes Status: Acute Hospital Course: The patient is a 42-year-old obese female that was admitted with sepsis after presenting with intractable nausea vomiting and abdominal pain. It was found that her sepsis was secondary to acute polynephritis as she had bilateral CVA tenderness on presentation, she was started on empiric IV antibiotics with IV Rocephin and soon thereafter became afebrile. CT abdomen and pelvis didn't correlate with findings suggestive of polynephritis with noted perinephric stranding. Urine cultures eventually grew E. coli and she was later switched to ciprofloxacin 500 mg by mouth PO BID by time of discharge. GI was Consulted to see the patient and Dr. Cherry performed a EGD confirming mild gastritis patient was transitioned from IV to oral Protonix. The patient was also treated for an acute asthma exacerbation and started on systemic steroids with Solu-Medrol later transitioned to oral prednisone along with scheduled and when necessary bronchodilator DuoNeb breathing treatments. With treatment she gradually improved, her potassium was replaced. The patient remained hemodynamically stable and all of her antihypertensives which she had previously not been taking consistently were held and subsequently discontinued on discharge . She was sent home in stable condition with new prescriptions for ciprofloxacin, prednisone and Protonix. This discharge process took approximately 35 minutes Constitutional: No acute distress, conversant, pleasant Eyes: Anicteric sclerae, moist conjunctiva, no lid-lag, PERRLA ENMT: NC/AT,Oropharynx clear, no erythema, exudates Neck:Supple, FROM, no masses, or JVD, No carotid bruits; No thyromegaly Lungs: Clear to auscultation, Clear to percussion, Normal respiratory effort, no accessory muscle use Cardiovascular: Heart regular in rate and rhythm, No murmurs, gallops, or rubs no peripheral edema Abdominal: Soft Nontender, nom distended, no guarding, no rebound or rigidity, Normoactive bowel sounds No hepatomegaly, No splenomegaly, improving CVA tenderness Skin: Normal temperature, tone, texture, turgor, No induration No subcutaneous nodules, No rash, lesions, No ulcers Extremities:No digital cyanosis No clubbing, Pedal pulses intact and symmetrical Radial pulses intact and symmetrical Normal gait and station, No calf tenderness Psychiatric: Alert and oriented to person, place and time, Appropriate affect Intact judgement Neuro: Muscles Strength 5/5 in all 4 extremities, Sensation to light touch grossly present throughout, Cranial nerves II-XII grossly intact. No focal sensory deficits Patient Condition at Discharge: Good Plan - Discharge Summary Discharge Rx Participant: Yes New Discharge Prescriptions: New Ciprofloxacin HCl [Cipro] 500 mg PO Q12H 11 Days #22 tab predniSONE 50 mg PO DAILY #2 tab Pantoprazole [Protonix] 40 mg PO DAILY #30 tablet.dr Continue busPIRone HCL [Buspar] 30 mg PO BID buPROPion [Wellbutrin] 100 mg PO BID Topiramate [Topamax] 25 mg PO HS Gabapentin [Neurontin] 300 mg PO TID Budesonide-Formot 160-4.5 Mcg [Symbicort 160-4.5 Mcg Inhaler] 2 puff INHALATION RT-BID Discontinued Metoprolol Succinate [Toprol XL] 25 mg PO DAILY Hydrochlorothiazide 25 mg PO DAILY Discharge Medication List Budesonide-Formot 160-4.5 Mcg [Symbicort 160-4.5 Mcg Inhaler] 2 puff INHALATION RT-BID 01/22/18 [History] Gabapentin [Neurontin] 300 mg PO TID 01/22/18 [History] Topiramate [Topamax] 25 mg PO HS 01/22/18 [History] buPROPion [Wellbutrin] 100 mg PO BID 01/22/18 [History] busPIRone HCL [Buspar] 30 mg PO BID 01/22/18 [History] Ciprofloxacin HCl [Cipro] 500 mg PO Q12H 11 Days #22 tab 01/25/18 [Rx] Pantoprazole [Protonix] 40 mg PO DAILY #30 tablet. 01/25/18 [Rx] predniSONE 50 mg PO DAILY #2 tab 01/25/18 [Rx] Follow up Appointment(s)/Referral(s): Nonstaff,Physician [Primary Care Provider] - 1-2 days Douglas Duenas MD [STAFF PHYSICIAN] - 02/16/18 10:45 am Discharge/Stand Alone Forms: Work/School Release, Work/Release Restrictions Form Discharge Disposition: HOME SELF-CARE
--- NOTE | 2018-01-25 12:32 | P.PN ---
Subjective Progress Note Date: 01/25/18 Principal diagnosis: Hematemesis Tolerating diet. Status post EGD evidence of gastritis. No further episodes of hematemesis. No episodes of hematochezia or melena. Denies abdominal pain. Discharged. Objective - Vital Signs Vital signs: Vital Signs Temp 98.0 F 01/25/18 05:42 Pulse 72 01/25/18 09:57 Resp 16 01/25/18 05:42 BP 123/65 01/25/18 05:42 Pulse Ox 98 01/25/18 05:42 Intake & Output 01/24/18 01/25/18 01/25/18 18:59 06:59 18:59 Intake Total 1210 Balance 1210 Intake: IV 1210 Sodium Chloride 0.9% 1, 960 000 ml @ 120 mls/hr IV . Q8H20M [facility] Rx#:[id number] cefTRIAXone 1,000 mg In 50 Sodium Chloride 0.9% 50 ml @ 100 mls/hr IVPB Q24HR [facility] Rx#:[id number] Other: Voiding Method Toilet # Voids 3 - Exam General appearance: The patient is alert, oriented, in no acute distress. HET: Head is normocephalic and atraumatic. Pupils are equal and reactive. Oropharynx is clear without lesions. Neck: Supple without lymphadenopathy. Trachea midline. Heart: S1 S2. Regular rate and rhythm. Lungs: No crackles or wheezes are heard. Abdomen: Soft, nontender, nondistended with bowel sounds. No peritoneal signs. No palpable organomegaly or masses. Extremities: Normal skin color and turgor. No cyanosis, rash, ulceration, clubbing, or edema. Radial and pedal pulses are 2/4 bilaterally. Neurological: No focal deficits. Strength and sensation are grossly intact. - Labs CBC & Chem 7: 01/23/18 09:00 01/24/18 03:14 Labs: Microbiology - Last 24 Hours (Table) 01/22/18 16:08 Urine Culture - Final Urine,Clean Catch Escherichia coli Assessment and Plan (1) Hematemesis Narrative/Plan: Gastritis status post EGD Current Visit: Yes Status: Acute Code(s): K92.0 - HEMATEMESIS SNOMED Code( s): 6025513 (2) H/O ETOH abuse Current Visit: Yes Status: Acute Code(s): Z87.898 - PERSONAL HISTORY OF OTHER SPECIFIED CONDITIONS SNOMED Code(s): 086898974 (3) Pyelonephritis Current Visit: Yes Status: Acute Code(s): N12 - TUBULO-INTERSTITIAL NEPHRITIS, NOT SPCF ACUTE OR CHRONIC SNOMED Code(s): 18418217 Plan: 1. Avoid alcohol. PPI daily. Agreeable for discharge. We'll follow as needed. assessment and plan a care discussed with Dr. Duenas
[2018-01-25 13:03] VITALS: PULSE 73
== END 2018-01-25 13:33 | disposition home or self-care (01) | DRG 871 ==
LOC: EC 11:29 → 4MS4W 14:10 → OBSVTOIN 01-23 14:53
PROVIDERS: ADMIT Family Medicine; ATTEND Family Medicine
PROC: 0DB78ZX Excision of Stomach, Pylorus, Via Natural or Artificial Opening Endoscopic, Diagnostic (ICD-10-PCS; 2018-01-24)
PROC: 0DB68ZX Excision of Stomach, Via Natural or Artificial Opening Endoscopic, Diagnostic (ICD-10-PCS; principal; 2018-01-24 09:25)
DX: A41.51 Sepsis due to Escherichia coli [E. coli] (principal); K29.01 Acute gastritis with bleeding; N10 Acute pyelonephritis; J45.901 Unspecified asthma with (acute) exacerbation; E66.01 Morbid (severe) obesity due to excess calories; Z68.30 Body mass index [BMI] 30.0-30.9, adult; E87.6 Hypokalemia; F10.21 Alcohol dependence, in remission; F17.210 Nicotine dependence, cigarettes, uncomplicated; F32.9 Major depressive disorder, single episode, unspecified; F41.9 Anxiety disorder, unspecified; I10 Essential (primary) hypertension; K21.9 Gastro-esophageal reflux disease without esophagitis; K90.0 Celiac disease; Z79.1 Long term (current) use of non-steroidal anti-inflammatories (NSAID); Z79.899 Other long term (current) drug therapy; K70.9 Alcoholic liver disease, unspecified; Z79.51 Long term (current) use of inhaled steroids
CPT/HCPCS: 36415; 43239; 71046; 74018; 74176; 80053; 81001; 81025; 82150; 83605; 83690; 83735; 84132; 85025; 87077; 87086; 87186; 93005; 94640

== ENCOUNTER 2018-03-03 03:35 | Emergency (ER) | payer OTHER ==
[2018-03-03 05:13] LABS: Appearance,Urine Cloudy (Clear); Bilirubin,Urine Negative (Negative); Blood,Urine Negative (Negative); Color,Urine Yellow; Glucose,Urine (UA) Negative (Negative); Granular Casts,Urine 60 /lpf (0); Ketones,Urine Negative (Negative); Leukocyte Esterase,Urine Small (Negative); Mucus,Urine Occasional /hpf; Nitrite,Urine Negative (Negative); Protein,Urine Trace (Negative); RBC,Urine 1 /hpf (0-5); Specific Gravity,Urine 1.017 (1.001-1.035); WBC,Urine 9 /hpf (0-5)
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
[2018-03-03 07:05] VITALS: PULSE 62; RESP 16
[2018-03-03 07:57] VITALS: BP 127/70; TEMP 97.8
[2018-03-03] MEDS ORDERED: cefTRIAXone 250 MG VIAL IM STA (08:29)
[2018-03-03] MEDS ORDERED: AZITHROMYCIN 250 MG TAB PO STA (08:29)
[2018-03-04 13:33] LABS: C. trachomatis,PCR Negative (Neg,Equiv); Chlamydia trachomatis Source Urine; N. gonorrhoeae,PCR Negative (Neg,Equiv); Neisseria Source Urine
== END 2018-03-03 08:28 | disposition home or self-care (01) ==
LOC: EC 03:35
DX: N39.0 Urinary tract infection, site not specified (principal); S16.1XXA Strain of muscle, fascia and tendon at neck level, initial encounter; J45.909 Unspecified asthma, uncomplicated; G62.1 Alcoholic polyneuropathy; F32.9 Major depressive disorder, single episode, unspecified; F41.9 Anxiety disorder, unspecified; F17.200 Nicotine dependence, unspecified, uncomplicated; Z88.8 Allergy status to other drugs, medicaments and biological substances; Z79.51 Long term (current) use of inhaled steroids; Z79.899 Other long term (current) drug therapy; V99.XXXA Unspecified transport accident, initial encounter
CPT/HCPCS: 72125; 81001; 81025; 87491; 87591; 99284

== ENCOUNTER 2018-06-29 23:16 | Emergency (ER) | payer OTHER ==
[2018-06-30] MEDS ORDERED: chlordiazePOXIDE 25 MG CAP PO STA ×2 (00:22→07:44)
--- NOTE | 2018-06-30 01:12 | ED ---
General Adult HPI - General Chief complaint: Psychiatric Symptoms Stated complaint: ETOH Time Seen by Provider: 06/29/18 23:27 Source: patient Mode of arrival: ambulatory Limitations: no limitations - History of Present Illness Initial comments: This patient is a 42-year-old woman who presents for evaluation due to her alcohol use. The patient states that she feels she may need some help to stop drinking. She states that she had gone back to drinking for the past few weeks. She states that she previously had a history of alcohol addiction though she had been able to quit for approximately one year. She states that she relapsed in her drinking, initially having about a pint of alcohol per day now up to nearly 1/5. She states that now every time she rises to stop drinking she becomes very anxious and shaky. She has previously had alcohol withdrawal seizures. -: week(s) Improves with: none Worsens with: none Associated Symptoms: denies other symptoms Treatments Prior to Arrival: none - Related Data Home Medications Medication Instructions Recorded Confirmed Budesonide-Formot 160-4.5 Mcg 2 puff INHALATION RT-BID 01/22/18 03/03/18 [Symbicort 160-4.5 Mcg Inhaler] Gabapentin [Neurontin] 300 mg PO TID 01/22/18 03/03/18 Topiramate [Topamax] 25 mg PO HS 01/22/18 03/03/18 buPROPion [Wellbutrin] 100 mg PO BID 01/22/18 03/03/18 busPIRone HCL [Buspar] 30 mg PO BID 01/22/18 03/03/18 Previous Rx's Medication Instructions Recorded Pantoprazole [Protonix] 40 mg PO DAILY #30 tablet. 01/25/18 predniSONE 50 mg PO DAILY #2 tab 01/25/18 Nitrofurantoin Monohyd/M-Cryst 100 mg PO Q12HR #6 cap 03/03/18 [Macrobid] Amoxicillin 875 mg PO Q12HR #14 tablet 06/30/18 chlordiazePOXIDE HCl [Librium] 25 mg PO QID 3 Days #12 capsule 06/30/18 Allergies Allergy/AdvReac Type Severity Reaction Status Date / Time ELLA Inhibitors Allergy Rash/Hives Verified 03/03/18 03:50 Review of Systems ROS Statement: Those systems with pertinent positive or pertinent negative responses have been documented in the HPI. ROS Other: All systems not noted in ROS Statement are negative. Constitutional: Denies: fever, chills, weakness Eyes: Denies: vision change Respiratory: Denies: cough, dyspnea Cardiovascular: Denies: chest pain, palpitations, syncope Gastrointestinal: Denies: abdominal pain, nausea, vomiting, melena Musculoskeletal: Denies: back pain Skin: Denies: rash Neurological: Denies: headache, weakness, numbness Psychiatric: Reports: anxiety, depression. Denies: auditory hallucinations, visual hallucinations, homicidal thoughts, suicidal thoughts Past Medical History Past Medical History: Asthma, Hypertension, Liver Disease Additional Past Medical History / Comment(s): alcoholic neuropathy. ETOH- quit in 07/2017. History of Any Multi-Drug Resistant Organisms: None Reported Past Surgical History: No Surgical Hx Reported Past Psychological History: Anxiety, Depression Smoking Status: Current every day smoker Past Alcohol Use History: Daily Past Drug Use History: Marijuana General Exam Limitations: no limitations General appearance: alert, in no apparent distress, appears intoxicated Head exam: Present: atraumatic, normocephalic Eye exam: Present: normal appearance. Absent: scleral icterus, conjunctival injection Neck exam: Present: normal inspection Respiratory exam: Present: normal lung sounds bilaterally. Absent: respiratory distress, wheezes, rales, rhonchi, stridor Cardiovascular Exam: Present: regular rate, normal rhythm, normal heart sounds. Absent: systolic murmur, diastolic murmur, rubs, gallop GI/Abdominal exam: Present: soft. Absent: distended, tenderness, guarding, rebound, mass Extremities exam: Present: normal inspection, normal capillary refill. Absent: pedal edema, calf tenderness Neurological exam: Present: alert Psychiatric exam: Present: normal affect, normal mood, depressed. Absent: agitated, flat affect, manic, homicidal ideation, suicidal ideation Skin exam: Present: warm, dry, intact, normal color. Absent: rash Course Vital Signs 06/29/18 06/30/18 06/30/18 23:20 01:36 03:10 Temperature 98.0 F Pulse Rate 105 H 97 66 Respiratory 20 19 16 Rate Blood Pressure 155/99 115/69 117/57 O2 Sat by Pulse 100 97 97 Oximetry Medical Decision Making - Lab Data Lab Results 06/30/18 Range/Units 01:00 Group A Strep Rapid Negative (Negative) Disposition Clinical Impression: Pharyngitis, Alcohol intoxication Disposition: HOME SELF-CARE Condition: Fair Prescriptions: Amoxicillin 875 mg PO Q12HR #14 tablet chlordiazePOXIDE HCl [Librium] 25 mg PO QID 3 Days #12 capsule Is patient prescribed a controlled substance at d/c from ED?: Yes When asked, does pt state using other controlled substances?: No If prescribed controlled substance>3 days was MAPS reviewed?: Prescribed <3 Days Referrals: None,Stated [Primary Care Provider] - 1-2 days
[2018-06-30 07:45] VITALS: BP 164/98; PULSE 110; RESP 18; TEMP 98.4
== END 2018-06-30 07:44 | disposition home or self-care (01) ==
LOC: EC 23:16
DX: F10.129 Alcohol abuse with intoxication, unspecified (principal); J02.9 Acute pharyngitis, unspecified; J45.909 Unspecified asthma, uncomplicated; I10 Essential (primary) hypertension; F32.9 Major depressive disorder, single episode, unspecified; F41.9 Anxiety disorder, unspecified; G62.9 Polyneuropathy, unspecified; F17.200 Nicotine dependence, unspecified, uncomplicated; Z79.51 Long term (current) use of inhaled steroids; Z79.899 Other long term (current) drug therapy; Z88.8 Allergy status to other drugs, medicaments and biological substances
CPT/HCPCS: 82075; 87081; 87430; 99284

== ENCOUNTER 2018-12-21 21:05 | Inpatient (IN) | payer OTHER ==
[2018-12-21] MEDS ORDERED: LORazepam 2 MG/ML INJ IV PRN (21:24)
[2018-12-21] MEDS ORDERED: SODIUM CHLORIDE 0.9% 1,000 ML IV STA ×2 (21:24)
[2018-12-21] MEDS ORDERED: THIAMINE 100 MG/ML 2 ML VIAL IM STA (21:24)
[2018-12-21] MEDS ORDERED: LORazepam 2 MG/ML INJ IV STA (21:24)
[2018-12-21] MEDS: LORazepam 2 MG/ML INJ IV PRN (21:46)
[2018-12-21 22:03] LABS: Basophils # (A) 0.1 k/uL (0-0.2); Basophils % (A) 2 %; Eosinophils # (A) 0.2 k/uL (0-0.7); Eosinophils % (A) 3 %; HCT 47.6 % (34.0-46.0); HGB 16.2 gm/dL (11.4-16.0); Lymphocytes # (A) 1.6 k/uL (1.0-4.8); Lymphocytes % (A) 29 %; MCH 32.7 pg (25.0-35.0); MCHC 34.1 g/dL (31.0-37.0); MCV 95.9 fL (80.0-100.0); Mean Platelet Volume 6.5; Monocytes # (A) 0.4 k/uL (0-1.0); Monocytes % (A) 8 %; Neutrophils # (A) 3.1 k/uL (1.3-7.7); Neutrophils % (A) 57 %; Platelet Count 208 k/uL (150-450); RBC 4.97 m/uL (3.80-5.40); RDW 13.9 % (11.5-15.5); WBC 5.4 k/uL (3.8-10.6)
[2018-12-21 22:06] LABS: Appearance,Urine Clear (Clear); Bilirubin,Urine Negative (Negative); Blood,Urine Moderate (Negative); Color,Urine Light Yellow; Glucose,Urine (UA) Negative (Negative); Hyaline Casts,Urine 195 /lpf (0-2); Ketones,Urine Negative (Negative); Leukocyte Esterase,Urine Negative (Negative); Mucus,Urine Rare /hpf; Nitrite,Urine Negative (Negative); PH, Urine 5.5 (5.0-8.0); Protein,Urine Trace (Negative); RBC,Urine 1 /hpf (0-5); Specific Gravity,Urine 1.007 (1.001-1.035); Squamous Epithelial Cell,Urine 7 /hpf (0-4); Urobilinogen,Urine <2.0 mg/dL (<2.0)
[2018-12-21 22:13] LABS: ALT 130 U/L (9-52); AST 140 U/L (14-36); African American GFR (CKD) >90 (>60 ml/min/1.73 sqM); Albumin 4.5 g/dL (3.5-5.0); Alkaline Phosphatase 77 U/L (38-126); Amylase <30 U/L (30-110); Anion Gap 12 mmol/L; Blood Urea Nitrogen 5 mg/dL (7-17); Calcium 9.8 mg/dL (8.4-10.2); Carbon Dioxide 23 mmol/L (22-30); Chloride 109 mmol/L (98-107); Glucose 85 mg/dL (74-99); Magnesium 2.2 mg/dL (1.6-2.3); Potassium 3.6 mmol/L (3.5-5.1); Sodium 144 mmol/L (137-145); Total Bilirubin 0.6 mg/dL (0.2-1.3); Total Protein 7.8 g/dL (6.3-8.2)
--- NOTE | 2018-12-21 22:20 | XR ---
EXAMINATION TYPE: XR abdomen 2V DATE OF EXAM: 12/21/2018 COMPARISON: 01/22/2018 HISTORY: Left side abdominal pain TECHNIQUE: 3 views upright and supine FINDINGS: There is no sign of intestinal obstruction or pneumoperitoneum. Fecal pattern is normal. Th ere is no sign of a mass. Lung bases are clear. There are no pathologic calcifications over the kidne ys. There is IUD noted. IMPRESSION: Nonacute abdomen. No change.
[2018-12-21 23:20] LABS: INR 0.9 (<1.2); Partial Thromboplastin Time 22.2 sec (22.0-30.0); Prothrombin Time 9.4 sec (9.0-12.0)
[2018-12-21] MEDS ORDERED: NALOXONE 0.4 MG/ML 1 ML VIAL IV PRN (23:30)
--- NOTE | 2018-12-21 23:30 | ED ---
Abdominal Pain HPI - General Chief Complaint: Abdominal Pain Stated Complaint: Nausea, vomiting Time Seen by Provider: 12/21/18 21:22 Source: patient, EMS Mode of arrival: EMS Limitations: no limitations - History of Present Illness Initial Comments: Melany is a 43-year-old alcoholic female who comes them today with abdominal pain, nausea, vomiting and concern for alcohol withdrawal. Patient states that she typically drinks all day every day ingesting about a gallon of liquor daily. She does have alcoholic liver disease and a history of alcoholic gastritis. She's never been told she had portal hypertension, has had pancreatitis in the past. Patient reports that she is made the decision to stop drinking, she is contacted [facility] and is scheduled to appear better on of next week. She states that usually after 6 hours of not drinking she'll begin to get shaky insert have withdrawal symptoms. Patient states that she has had w ithdrawal with delirium tremens including seizures and hallucinations in the past. Patient states that her last drink was 4-6 hours prior and she feels that she is withdrawing. Patient reports she is also feeling very shaky, nauseated vomiting she's had 2 episodes of vomiting with some scant bright red blood. Patient also describes crampy epigastric abdominal pain similar to previous episodes pancreatitis. - Related Data Home Medications Medication Instructions Recorded Confirmed Gabapentin [Neurontin] 300 mg PO TID 01/22/18 12/21/18 buPROPion [Wellbutrin] 100 mg PO BID 01/22/18 12/21/18 Albuterol Sulfate [Ventolin HFA] 1 - 2 puff INHALATION RT-Q6H PRN 12/21/18 12/21/18 Beclomethasone Dip 80 Mcg/Puff 1 puff INHALATION RT-BID 12/21/18 12/21/18 [Qvar 80 mcg] Pashto Panax Ginseng 1 tab PO DAILY 12/21/18 12/21/18 Loratadine [Claritin] 10 mg PO DAILY 12/21/18 12/21/18 Metoprolol Succinate [Toprol XL] 100 mg PO DAILY 12/21/18 12/21/18 Multivitamins, Thera [Multivitamin 1 tab PO DAILY 12/21/18 12/21/18 (formulary)] Omeprazole 20 mg PO DAILY 12/21/18 12/21/18 Ondansetron HCl [Zofran] 8 mg PO DAILY PRN 12/21/18 12/21/18 amLODIPine [Norvasc] 10 mg PO DAILY 12/21/18 12/21/18 busPIRone HCL 15 mg PO BID 12/21/18 12/21/18 traZODone HCL 50 mg PO HS 12/21/18 12/21/18 Previous Rx's Medication Instructions Recorded Pantoprazole [Protonix] 40 mg PO DAILY #30 tablet. 01/25/18 Allergies Allergy/AdvReac Type Severity Reaction Status Date / Time ELLA Inhibitors Allergy Rash/Hives Verified 12/21/18 23:47 Review of Systems ROS Statement: Those systems with pertinent positive or pertinent negative responses have been documented in the HPI. ROS Other: All systems not noted in ROS Statement are negative. Past Medical History Past Medical History: Asthma, Hypertension, Liver Disease Additional Past Medical History / Comment(s): alcoholic neuropathy, pancreatitis History of Any Multi-Drug Resistant Organisms: None Reported Past Surgical History: No Surgical Hx Reported Additional Past Surgical History / Comment(s): LEEP Past Psychological History: Anxiety, Depression Smoking Status: Current every day smoker Past Alcohol Use History: Daily Past Drug Use History: Marijuana - Past Family History Father Family Medical History: No Reported History General Exam - General Exam Comments Initial Comments: Physical Exam GENERAL: Appears older than stated age Bobby complexion HENT: Normocephalic, Atraumatic. EYES: PERRL, EOMI PULMONARY: Unlabored respirations. CARDIOVASCULAR: RRR ABDOMEN: Soft with normal bowel sounds. Non peritoneal Mild epigastric tenderness to deep palpation SKIN: Skin is clear with no lesions or rashes and otherwise unremarkable. : Deferred NEUROLOGIC: Patient is alert and oriented x3. Moving all extremities spontaneously MUSCULOSKELETAL: Normal extremities with adequate strength and full range of motion. No lower extremity swelling or edema. No calf tenderness. PSYCHIATRIC: Hopeless affect, depressed. Limitations: no limitations Course Vital Signs 12/21/18 12/21/18 12/21/18 21:11 21:52 23:45 Temperature 98.1 F Pulse Rate 75 74 Respiratory 18 16 16 Rate Blood Pressure 147/102 128/88 O2 Sat by Pulse 94 L 98 Oximetry Medical Decision Making - Medical Decision Making The patient was seen and evaluated, history is obtained from the patient, patient received Zofran in route to the hospital in her nausea has improved. She still has mild epigastric discomfort. Upon arrival patient is sweating and shaking, her CIWA score is 10 Labs and imaging were obtained Ativan for alcohol withdrawal was ordered Labs and no signs of pancreatitis, patient is hemoconcentrated with a hemoglobin of 16. Urinalysis confirms dehydration. IV fluids were ordered. The patient's multiple medical comorbidities, concern for significant alcohol withdrawal and significant needs for Ativan to prevent withdrawal patient will be admitted to the hospital for fluid rehydration, treatment of withdrawal. Patient's primary care physician admits the [facility] hospitalist group. - Lab Data Result diagrams: 12/21/18 21:34 12/21/18 21:34 Lab Results 12/21/18 12/21/18 12/21/18 Range/Units 21:34 21:34 21:34 WBC 5.4 (3.8-10.6) k/uL RBC 4.97 (3.80-5.40) m/uL Hgb 16.2 H (11.4-16.0) gm/dL Hct 47.6 H (34.0-46.0) % MCV 95.9 (80.0-100.0) fL MCH 32.7 (25.0-35.0) pg MCHC 34.1 (31.0-37.0) g/dL RDW 13.9 (11.5-15.5) % Plt Count 208 (150-450) k/uL Neutrophils % 57 % Lymphocytes % 29 % Monocytes % 8 % Eosinophils % 3 % Basophils % 2 % Neutrophils # 3.1 (1.3-7.7) k/uL Lymphocytes # 1.6 (1.0-4.8) k/uL Monocytes # 0.4 (0-1.0) k/uL Eosinophils # 0.2 (0-0.7) k/uL Basophils # 0.1 (0-0.2) k/uL PT (9.0-12.0) sec INR (<1.2) APTT (22.0-30.0) sec Sodium 144 (137-145) mmol/L Potassium 3.6 (3.5-5.1) mmol/L Chloride 109 H (98-107) mmol/L Carbon Dioxide 23 (22-30) mmol/L Anion Gap 12 mmol/L BUN 5 L (7-17) mg/dL Creatinine 0.62 (0.52-1.04) mg/dL Est GFR (CKD-EPI)AfAm >90 (>60 ml/min/1.73 sqM) Est GFR (CKD-EPI)NonAf >90 (>60 ml/min/1.73 sqM) Glucose 85 (74-99) mg/dL Plasma Lactic Acid Demetri 1.7 (0.7-2.0) mmol/L Calcium 9.8 (8.4-10.2) mg/dL Magnesium 2.2 (1.6-2.3) mg/dL Total Bilirubin 0.6 (0.2-1.3) mg/dL AST 140 H (14-36) U/L ALT 130 H (9-52) U/L Alkaline Phosphatase 77 (38-126) U/L Total Protein 7.8 (6.3-8.2) g/dL Albumin 4.5 (3.5-5.0) g/dL Amylase <30 L (30-110) U/L Lipase 143 (23-300) U/L Urine Color Urine Appearance (Clear) Urine pH (5.0-8.0) Ur Specific [place] (1.001-1.035) Urine Protein (Negative) Urine Glucose (UA) (Negative) Urine Ketones (Negative) Urine Blood (Negative) Urine Nitrite (Negative) Urine Bilirubin (Negative) Urine Urobilinogen (<2.0) mg/dL Ur Leukocyte Esterase (Negative) Urine RBC (0-5) /hpf Ur Squamous Epith Cells (0-4) /hpf Hyaline Casts (0-2) /lpf Urine Mucus (None) /hpf Urine HCG, Qual (Not Detectd) Blood Type Blood Type Confirm Blood Type Recheck Bld Type Recheck Status Antibody Screen Spec Expiration Date 12/21/18 12/21/18 12/21/18 Range/Units 21:34 21:50 21:50 WBC (3.8-10.6) k/uL RBC (3.80-5.40) m/uL Hgb (11.4-16.0) gm/dL Hct (34.0-46.0) % MCV (80.0-100.0) fL MCH (25.0-35.0) pg MCHC (31.0-37.0) g/dL RDW (11.5-15.5) % Plt Count (150-450) k/uL Neutrophils % % Lymphocytes % % Monocytes % % Eosinophils % % Basophils % % Neutrophils # (1.3-7.7) k/uL Lymphocytes # (1.0-4.8) k/uL Monocytes # (0-1.0) k/uL Eosinophils # (0-0.7) k/uL Basophils # (0-0.2) k/uL PT (9.0-12.0) sec INR (<1.2) APTT (22.0-30.0) sec Sodium (137-145) mmol/L Potassium (3.5-5.1) mmol/L Chloride (98-107) mmol/L Carbon Dioxide (22-30) mmol/L Anion Gap mmol/L BUN (7-17) mg/dL Creatinine (0.52-1.04) mg/dL Est GFR (CKD-EPI)AfAm (>60 ml/min/1.73 sqM) Est GFR (CKD-EPI)NonAf (>60 ml/min/1.73 sqM) Glucose (74-99) mg/dL Plasma Lactic Acid Demetri (0.7-2.0) mmol/L Calcium (8.4-10.2) mg/dL Magnesium (1.6-2.3) mg/dL Total Bilirubin (0.2-1.3) mg/dL AST (14-36) U/L ALT (9-52) U/L Alkaline Phosphatase (38-126) U/L Total Protein (6.3-8.2) g/dL Albumin (3.5-5.0) g/dL Amylase (30-110) U/L Lipase (23-300) U/L Urine Color Light Yellow Urine Appearance Clear (Clear) Urine pH 5.5 (5.0-8.0) Ur Specific [place] 1.007 (1.001-1.035) Urine Protein Trace H (Negative) Urine Glucose (UA) Negative (Negative) Urine Ketones Negative (Negative) Urine Blood Moderate H (Negative) Urine Nitrite Negative (Negative) Urine Bilirubin Negative (Negative) Urine Urobilinogen <2.0 (<2.0) mg/dL Ur Leukocyte Esterase Negative (Negative) Urine RBC 1 (0-5) /hpf Ur Squamous Epith Cells 7 H (0-4) /hpf Hyaline Casts 195 H (0-2) /lpf Urine Mucus Rare H (None) /hpf Urine HCG, Qual Not Detected (Not Detectd) Blood Type A Positive Blood Type Confirm Blood Type Recheck No Previous Record Bld Type Recheck Status CABO Indicated Antibody Screen NEGATIVE Spec Expiration Date 12/24/2018 - 233312/21/18 12/21/18 Range/Units 22:40 22:40 WBC (3.8-10.6) k/uL RBC (3.80-5.40) m/uL Hgb (11.4-16.0) gm/dL Hct (34.0-46.0) % MCV (80.0-100.0) fL MCH (25.0-35.0) pg MCHC (31.0-37.0) g/dL RDW (11.5-15.5) % Plt Count (150-450) k/uL Neutrophils % % Lymphocytes % % Monocytes % % Eosinophils % % Basophils % % Neutrophils # (1.3-7.7) k/uL Lymphocytes # (1.0-4.8) k/uL Monocytes # (0-1.0) k/uL Eosinophils # (0-0.7) k/uL Basophils # (0-0.2) k/uL PT 9.4 (9.0-12.0) sec INR 0.9 (<1.2) APTT 22.2 (22.0-30.0) sec Sodium (137-145) mmol/L Potassium (3.5-5.1) mmol/L Chloride (98-107) mmol/L Carbon Dioxide (22-30) mmol/L Anion Gap mmol/L BUN (7-17) mg/dL Creatinine (0.52-1.04) mg/dL Est GFR (CKD-EPI)AfAm (>60 ml/min/1.73 sqM) Est GFR (CKD-EPI)NonAf (>60 ml/min/1.73 sqM) Glucose (74-99) mg/dL Plasma Lactic Acid Demetri (0.7-2.0) mmol/L Calcium (8.4-10.2) mg/dL Magnesium (1.6-2.3) mg/dL Total Bilirubin (0.2-1.3) mg/dL AST (14-36) U/L ALT (9-52) U/L Alkaline Phosphatase (38-126) U/L Total Protein (6.3-8.2) g/dL Albumin (3.5-5.0) g/dL Amylase (30-110) U/L Lipase (23-300) U/L Urine Color Urine Appearance (Clear) Urine pH (5.0-8.0) Ur Specific [place] (1.001-1.035) Urine Protein (Negative) Urine Glucose (UA) (Negative) Urine Ketones (Negative) Urine Blood (Negative) Urine Nitrite (Negative) Urine Bilirubin (Negative) Urine Urobilinogen (<2.0) mg/dL Ur Leukocyte Esterase (Negative) Urine RBC (0-5) /hpf Ur Squamous Epith Cells (0-4) /hpf Hyaline Casts (0-2) /lpf Urine Mucus (None) /hpf Urine HCG, Qual (Not Detectd) Blood Type Blood Type Confirm A Positive Blood Type Recheck Bld Type Recheck Status Antibody Screen Spec Expiration Date Disposition Clinical Impression: Abdominal pain, Hematemesis, H/O ETOH abuse, Intractable nausea and vomiting, Alcohol withdrawal Disposition: ADMITTED IP TO THIS [facility] Condition: Serious
[2018-12-22] MEDS: LORazepam 2 MG/ML INJ IV PRN ×6 (03:20→20:58)
[2018-12-22] MEDS: SODIUM CHLORIDE 0.9% 1,000 ML IV SCH ×4 (03:41→22:47)
[2018-12-22] MEDS: THIAMINE 100 MG TAB PO SCH ×3 (03:41→17:12)
[2018-12-22] MEDS: ONDANSETRON 4 MG/2 ML VIAL IVP PRN ×2 (04:44→14:38)
[2018-12-22] MEDS: NICOTINE 14MG/24HR PATCH TRANSDERM SCH (07:35)
[2018-12-22] MEDS ORDERED: PANTOPRAZOLE 40 MG/10 ML VIAL IV SCH (09:00)
[2018-12-22] MEDS ORDERED: ALBUTEROL NEBULIZED 2.5 MG/3 ML INHALATION PRN (13:57)
--- NOTE | 2018-12-22 14:40 | P.HPIM ---
History of Present Illness 43-year-old the female chronic alcoholic used to drink a fifth of alcohol everyday quit alcohol started having withdrawals because of which patient came to the hospital patient is supposed to go to alcohol rehabilitation program. Patient was having nausea vomiting and active alcohol withdrawal and patient is requiring Ativan as often. Patient is also complaining of odynophagia does have oral thrush. Patient is also complaining of epigastric abdominal burning sensation and diffuse abdominal burning sensation probably from a colic gastritis. Patient had seizures in the past was for because of alcohol withdrawal. Patient is a very pleasant female does smoke complaining of for grayish sputum production Review of Systems REVIEW OF SYSTEMS: CONSTITUTIONAL: As mentioned in HPI HEENT: No recent visual problems or hearing problems. Denied any sore throat. CARDIOVASCULAR: No chest pain, orthopnea, PND, no palpitations, no syncope. PULMONARY: No shortness of breath, , no hemoptysis. GASTROINTESTINAL: As mentioned in HPI NEUROLOGICAL: No headaches, no weakness, no numbness. HEMATOLOGICAL: Denies any bleeding or petechiae. GENITOURINARY: Denies any burning micturition, frequency, or urgency. MUSCULOSKELETAL/RHEUMATOLOGICAL: Denies any joint pain, swelling, or any muscle pain. ENDOCRINE: Denies any polyuria or polydipsia. The rest of the 14-point review of systems is negative. Past Medical History Past Medical History: Asthma, Hypertension, Liver Disease Additional Past Medical History / Comment(s): alcoholic neuropathy, pancreatitis History of Any Multi-Drug Resistant Organisms: None Reported Past Surgical History: No Surgical Hx Reported Additional Past Surgical History / Comment(s): LEEP Past Anesthesia/Blood Transfusion Reactions: No Reported Reaction Past Psychological History: Anxiety, Depression Smoking Status: Current every day smoker Past Alcohol Use History: Daily Past Drug Use History: Marijuana - Past Family History Father Family Medical History: No Reported History Medications and Allergies Home Medications Medication Instructions Recorded Confirmed Type Gabapentin [Neurontin] 300 mg PO TID 01/22/18 12/21/18 History buPROPion [Wellbutrin] 100 mg PO BID 01/22/18 12/21/18 History Pantoprazole [Protonix] 40 mg PO DAILY #30 tablet. 01/25/18 12/21/18 Rx Albuterol Sulfate [Ventolin HFA] 1 - 2 puff INHALATION RT-Q6H PRN 12/21/18 12/21/18 History Beclomethasone Dip 80 Mcg/Puff 1 puff INHALATION RT-BID 12/21/18 12/21/18 History [Qvar 80 mcg] Romanian Panax Ginseng 1 tab PO DAILY 12/21/18 12/21/18 History Loratadine [Claritin] 10 mg PO DAILY 12/21/18 12/21/18 History Metoprolol Succinate [Toprol XL] 100 mg PO DAILY 12/21/18 12/21/18 History Multivitamins, Thera [Multivitamin 1 tab PO DAILY 12/21/18 12/21/18 History (formulary)] Omeprazole 20 mg PO DAILY 12/21/18 12/21/18 History Ondansetron HCl [Zofran] 8 mg PO DAILY PRN 12/21/18 12/21/18 History amLODIPine [Norvasc] 10 mg PO DAILY 12/21/18 12/21/18 History busPIRone HCL 15 mg PO BID 12/21/18 12/21/18 History traZODone HCL 50 mg PO HS 12/21/18 12/21/18 History Allergies Allergy/AdvReac Type Severity Reaction Status Date / Time ELLA Inhibitors Allergy Rash/Hives Verified 12/21/18 23:47 Physical Exam Vitals: Vital Signs Temp Pulse Pulse Resp BP BP Pulse Ox 12/22/18 11:22 98.1 F 75 18 152/95 97 12/22/18 07:54 62 14 12/22/18 05:24 98.0 F 62 14 120/71 100 12/22/18 01:03 98.2 F 66 16 119/74 96 12/21/18 23:45 16 12/21/18 21:52 74 16 128/88 98 12/21/18 21:11 98.1 F 75 18 147/102 94 L Intake and Output 12/21/18 12/22/18 12/22/18 22:59 06:59 14:59 Intake Total 1300 240 Balance 1300 240 Intake: Amount of Fluid Infused ( 1300 ml) Oral 240 Other: Voiding Method Toilet Toilet # Voids 1 3 Weight 77.111 kg PHYSICAL EXAMINATION: GENERAL: The patient is alert and oriented x3, not in any acute distress. Well developed, well nourished. Tremulous is undergoing active withdrawals HEENT: Pupils are round and equally reacting to light. EOMI. No scleral icterus. No conjunctival pallor. Normocephalic, atraumatic. No pharyngeal erythema. No thyromegaly. Patient has oral thrush CARDIOVASCULAR: S1 and S2 present. No murmurs, rubs, or gallops. PULMONARY: Chest is clear to auscultation, no wheezing or crackles. ABDOMEN: Soft, nontender, nondistended, normoactive bowel sounds. No palpable organomegaly. MUSCULOSKELETAL: No joint swelling or deformity. EXTREMITIES: No cyanosis, clubbing, or pedal edema. NEUROLOGICAL: Gross neurological examination did not reveal any focal deficits. SKIN: No rashes. Results CBC & Chem 7: 12/21/18 21:34 12/21/18 21:34 Labs: Abnormal Lab Results - Last 24 Hours (Table) 12/21/18 12/21/18 12/21/18 Range/Units 21:34 21:34 21:50 Hgb 16.2 H (11.4-16.0) gm/dL Hct 47.6 H (34.0-46.0) % Chloride 109 H (98-107) mmol/L BUN 5 L (7-17) mg/dL AST 140 H (14-36) U/L ALT 130 H (9-52) U/L Amylase <30 L (30-110) U/L Urine Protein Trace H (Negative) Urine Blood Moderate H (Negative) Ur Squamous Epith Cells 7 H (0-4) /hpf Hyaline Casts 195 H (0-2) /lpf Urine Mucus Rare H (None) /hpf Thrombosis Risk Factor Assmnt - Choose All That Apply Any of the Below Risk Factors Present?: Yes Each Factor Represents 1 point: Age 41-60 years, Obesity (BMI >25) Thrombosis Risk Factor Assessment Total Risk Factor Score: 2 Thrombosis Risk Factor Assessment Level: Low Risk Assessment and Plan Plan: -Acute alcohol withdrawal: Patient will be on Ativan CIWA protocol along with the Librium. -Odynophagia secondary to fungal esophagitis she'll be started on IV flucanazole because of severe gastritis will not use oral flucanazole. -Alcohol he gastritis -Acute alcohol he [place] expected to improve with the cessation of alcohol -Urinary incontinence patient will be started on oxybutynin which she uses at home. -Continued nicotine use: Counseling was provided -Asthma without any acute exacerbation
[2018-12-22] MEDS: GABAPENTIN 300 MG CAP PO SCH ×2 (17:12→22:43)
[2018-12-22] MEDS: chlordiazePOXIDE 25 MG CAP PO SCH ×2 (17:12→22:43)
[2018-12-22] MEDS: METOPROLOL SUCCINATE (ER) 100 MG TAB.ER.24H PO SCH (17:13)
[2018-12-22] MEDS: OXYBUTYNIN XL 5 MG TAB.ER.24 PO SCH (17:13)
[2018-12-22] MEDS: FLUCONAZOLE IN NACL,ISO-OSM 100 MG in SALINE 1 50ML.BAG IVPB SCH (17:14)
[2018-12-22] MEDS: FLUTICASONE 110 MCG INHALER INHALATION SCH (20:26)
[2018-12-22] MEDS: busPIRone HCl 5 MG TAB PO SCH (20:45)
[2018-12-22] MEDS: PANTOPRAZOLE 40 MG/10 ML VIAL IV SCH (20:45)
[2018-12-22 20:59] VITALS: RESP 16
[2018-12-23] MEDS: LORazepam 2 MG/ML INJ IV PRN ×5 (04:13→20:20)
[2018-12-23] MEDS: ONDANSETRON 4 MG/2 ML VIAL IVP PRN (04:18)
[2018-12-23 08:45] LABS: HGB 15.6 gm/dL (11.4-16.0); MCH 32.3 pg (25.0-35.0); MCHC 33.3 g/dL (31.0-37.0); Mean Platelet Volume 6.9; Platelet Count 175 k/uL (150-450); RBC 4.85 m/uL (3.80-5.40); RDW 13.8 % (11.5-15.5); WBC 5.5 k/uL (3.8-10.6)
[2018-12-23] MEDS: NICOTINE 14MG/24HR PATCH TRANSDERM SCH (08:50)
[2018-12-23 08:51] LABS: ALT 116 U/L (9-52); AST 122 U/L (14-36); African American GFR (CKD) >90 (>60 ml/min/1.73 sqM); Albumin 4.2 g/dL (3.5-5.0); Alkaline Phosphatase 75 U/L (38-126); Anion Gap 5 mmol/L; Blood Urea Nitrogen 6 mg/dL (7-17); Calcium 9.8 mg/dL (8.4-10.2); Carbon Dioxide 29 mmol/L (22-30); Chloride 105 mmol/L (98-107); Glucose 74 mg/dL (74-99); Potassium 3.9 mmol/L (3.5-5.1); Sodium 139 mmol/L (137-145); Total Bilirubin 1.9 mg/dL (0.2-1.3); Total Protein 7.3 g/dL (6.3-8.2)
[2018-12-23] MEDS: LORATADINE 10 MG TAB PO SCH (08:51)
[2018-12-23] MEDS: MULTIVITAMINS, THERA 1 EACH TAB PO SCH (08:51)
[2018-12-23] MEDS: METOPROLOL SUCCINATE (ER) 100 MG TAB.ER.24H PO SCH (08:51)
[2018-12-23] MEDS: busPIRone HCl 5 MG TAB PO SCH ×2 (08:51→21:26)
[2018-12-23] MEDS: THIAMINE 100 MG TAB PO SCH ×2 (08:51→17:36)
[2018-12-23] MEDS: chlordiazePOXIDE 25 MG CAP PO SCH ×3 (08:51→21:26)
[2018-12-23] MEDS: OXYBUTYNIN XL 5 MG TAB.ER.24 PO SCH (08:51)
[2018-12-23] MEDS: GABAPENTIN 300 MG CAP PO SCH ×3 (08:51→21:26)
[2018-12-23] MEDS: PANTOPRAZOLE 40 MG/10 ML VIAL IV SCH ×2 (08:52→21:26)
[2018-12-23] MEDS: FLUTICASONE 110 MCG INHALER INHALATION SCH ×2 (09:14→20:13)
[2018-12-23] MEDS: SODIUM CHLORIDE 0.9% 1,000 ML IV SCH ×2 (12:07→15:38)
[2018-12-23] MEDS ORDERED: IPRATROPIUM-ALBUTEROL 3 ML NEB INHALATION PRN (13:36)
--- NOTE | 2018-12-23 13:38 | P.PN ---
Subjective 43-year-old the female chronic alcoholic used to drink a fifth of alcohol everyday quit alcohol started having withdrawals because of which patient came to the hospital patient is supposed to go to alcohol rehabilitation program. Patient was having nausea vomiting and active alcohol withdrawal and patient is requiring Ativan as often. Patient is also complaining of odynophagia does have oral thrush. Patient is also complaining of epigastric abdominal burning sensation and diffuse abdominal burning sensation probably from a colic gastritis. Patient had seizures in the past was for because of alcohol withdrawal. Patient is a very pleasant female does smoke complaining of for grayish sputum production 12/23/2018 Patient's odynophagia is much better today. Patient is still having some wheezing on exam withdrawals are not much better today. Abdominal pain completely resolved Constitutional: Denied any fatigue denied any fever. Cardio vascular: denied any chest pain, palpitations Gastrointestinal denied any nausea vomiting Pulmonary: Denied any shortness of breath cough Neurologic denied any new focal deficits All inpatient medications were reviewed and appropriate changes in these medications as dictated in the interval history and assessment and plan. Objective - Vital Signs Vital signs: Vital Signs Temp 97.5 F L 12/23/18 11:15 Pulse 62 12/23/18 11:15 Resp 16 12/23/18 11:15 BP 132/74 12/23/18 11:15 Pulse Ox 96 12/23/18 11:15 Intake & Output 12/22/18 12/23/18 12/23/18 18:59 06:59 18:59 Intake Total 240 2130 Balance 240 2130 Intake: Intake, IV Titration 1300 Amount Sodium Chloride 0.9% 1, 800 000 ml @ 100 mls/hr IV . Q10H STA Rx#:[id number] Sodium Chloride 0.9% 1, 500 000 ml @ 125 mls/hr IV . Q8H PILI Rx#:[id number] Oral 240 830 Other: Voiding Method Toilet Toilet Toilet # Voids 3 2 # Bowel Movements 1 - Exam PHYSICAL EXAMINATION: GENERAL: The patient is alert and oriented x3, not in any acute distress. Well developed, well nourished. Tremulous is undergoing active withdrawals HEENT: Pupils are round and equally reacting to light. EOMI. No scleral icterus. No conjunctival pallor. Normocephalic, atraumatic. No pharyngeal erythema. No thyromegaly. Patient has oral thrush CARDIOVASCULAR: S1 and S2 present. No murmurs, rubs, or gallops. PULMONARY: Fairly good air entry into bilateral lung hill but does have some expiratory wheezing on exam ABDOMEN: Soft, nontender, nondistended, normoactive bowel sounds. No palpable organomegaly. MUSCULOSKELETAL: No joint swelling or deformity. EXTREMITIES: No cyanosis, clubbing, or pedal edema. NEUROLOGICAL: Gross neurological examination did not reveal any focal deficits. SKIN: No rashes. - Labs CBC & Chem 7: 12/23/18 07:52 12/23/18 07:52 Labs: Abnormal Lab Results - Last 24 Hours (Table) 12/23/18 12/23/18 Range/Units 07:52 07:52 Hct 47.0 H (34.0-46.0) % BUN 6 L (7-17) mg/dL Total Bilirubin 1.9 H (0.2-1.3) mg/dL AST 122 H (14-36) U/L ALT 116 H (9-52) U/L Assessment and Plan Plan: -Acute alcohol withdrawal: Patient will be on Ativan CIWA protocol along with the Librium. Withdrawals are not much better today -Odynophagia secondary to fungal esophagitis she'll be started on IV flucanazole because of severe gastritis will not use oral flucanazole. Odynophagia signi ficantly improved -Alcohol he gastritis -Acute alcohol he [place] expected to improve with the cessation of alcohol -Urinary incontinence patient will be started on oxybutynin which she uses at home. -Continued nicotine use: Counseling was provided -Asthma and possible mild COPD with mild acute exacerbation
[2018-12-23] MEDS: FLUCONAZOLE IN NACL,ISO-OSM 100 MG in SALINE 1 50ML.BAG IVPB SCH (15:37)
[2018-12-23] MEDS ORDERED: ALBUTEROL NEBULIZED 2.5 MG/3 ML INHALATION ONE (19:34)
[2018-12-23] MEDS ORDERED: cloNIDine HCL 0.1 MG TAB PO STA (21:20)
[2018-12-24] MEDS: LORazepam 2 MG/ML INJ IV PRN ×3 (00:50→07:59)
[2018-12-24] MEDS: ONDANSETRON 4 MG/2 ML VIAL IVP PRN (02:15)
[2018-12-24 05:23] VITALS: BP 131/69; PULSE 55; TEMP 97.1
[2018-12-24] MEDS: PANTOPRAZOLE 40 MG/10 ML VIAL IV SCH (07:57)
[2018-12-24] MEDS: busPIRone HCl 5 MG TAB PO SCH (07:57)
[2018-12-24 07:58] LABS: ALT 161 U/L (9-52); AST 144 U/L (14-36); African American GFR (CKD) >90 (>60 ml/min/1.73 sqM); Albumin 4.1 g/dL (3.5-5.0); Alkaline Phosphatase 72 U/L (38-126); Anion Gap 8 mmol/L; Blood Urea Nitrogen 6 mg/dL (7-17); Carbon Dioxide 23 mmol/L (22-30); Chloride 110 mmol/L (98-107); Glucose 83 mg/dL (74-99); Potassium 3.8 mmol/L (3.5-5.1); Sodium 141 mmol/L (137-145); Total Bilirubin 1.1 mg/dL (0.2-1.3); Total Protein 7.3 g/dL (6.3-8.2)
[2018-12-24] MEDS: THIAMINE 100 MG TAB PO SCH (07:58)
[2018-12-24] MEDS: LORATADINE 10 MG TAB PO SCH (07:58)
[2018-12-24] MEDS: NICOTINE 14MG/24HR PATCH TRANSDERM SCH (07:58)
[2018-12-24] MEDS: OXYBUTYNIN XL 5 MG TAB.ER.24 PO SCH (07:58)
[2018-12-24] MEDS: MULTIVITAMINS, THERA 1 EACH TAB PO SCH (07:58)
[2018-12-24] MEDS: METOPROLOL SUCCINATE (ER) 100 MG TAB.ER.24H PO SCH (07:58)
[2018-12-24] MEDS: GABAPENTIN 300 MG CAP PO SCH (07:59)
[2018-12-24] MEDS: chlordiazePOXIDE 25 MG CAP PO SCH (07:59)
[2018-12-24] MEDS: FLUTICASONE 110 MCG INHALER INHALATION SCH (08:15)
[2018-12-24] MEDS: SODIUM CHLORIDE 0.9% 1,000 ML IV SCH (09:23)
--- NOTE | 2018-12-24 13:26 | P.DS ---
Providers Date of admission: 12/22/18 13:50 Expected date of discharge: 12/24/18 Attending physician: Greg Rangel Primary care physician: [facility] Course: Final diagnosis -Acute alcohol withdrawal -Odynophagia secondary to fungal esophagitis -Alcoholic gastritis -Acute alcohol hepatitis -Urinary incontinence -Continued nicotine use: Counseling was provided -Asthma and possible mild COPD with mild acute exacerbation Discharge disposition Patient is being discharged in a stable condition with guarded prognosis to home with family and will be going to [facility] this for admission for alcohol rehab. Patient was sent home with Librium and will taper down in the outpatient setting. Patient will continue on a short course of oral Diflucan in the outpatient setting as well. Total time taken is 35 minutes. History of present illness This is a 43-year-old female who was recently admitted for alcohol withdrawals and was being closely monitored. Patient was found to have odynophagia and oral thrush and is being treated with Diflucan and will continue the outpatient setting upon discharge. During hospitalization patient continue to have abdominal discomfort and epigastric burning sensation and will continue with Protonix in the outpatient setting. Patient will also be going home with Librium and will taper down and discussed with the patient at length about refraining from alcohol intake and following up with [facility] for admission this . Patient verbalized understanding and agrees with this treatment plan and states that she has some things to take care of prior to being admitted there on . Discussed with the patient about inhalers at home and patient states that she does have Qvar and albuterol inhalers at the home. Patient will need to follow-up with her primary care provider upon discharge. Currently patient's condition is stable with improvement and would like to go home today. Patient denies any chest pain, shortness of breath, or palpitations at this time. Patient is afebrile. Patient denies any vomiting and is having intermittent periods of nausea but denies any abdominal discomfort at this time. Patient states that she is tolerating diet and advancing slowly as tolerated. A prescription for Zofran was provided. Extremely guarded prognosis. On exam vital signs are stable. Temp is 97.1F, pulse is 55, respirations are 16, blood pressure is 131/69, oxygen saturation is 95% on room air. Cardio S1 and S2 are present. Respiratory system shows diminished breath sounds at the bases with mild expiratory wheezing noted on exam. Abdomen is soft, obese, nontender. Nervous system shows no focal deficits. Please refer to medication reconciliation sheet for a list of medications. Patient Condition at Discharge: Fair Plan - Discharge Summary New Discharge Prescriptions: New LORazepam [Ativan] 1 mg PO TID PRN #12 tab PRN Reason: Anxiety Oxybutynin Xl [Ditropan XL] 10 mg PO DAILY 30 Days #30 tab.er.24 chlordiazePOXIDE HCl [Librium] 25 mg PO TID #16 cap Thiamine [Vitamin B-1] 100 mg PO BID-W/MEALS 30 Days #60 tab Fluconazole [Diflucan] 100 mg PO DAILY 5 Days #5 tab Continue buPROPion [Wellbutrin] 100 mg PO BID Gabapentin [Neurontin] 300 mg PO TID busPIRone HCL 15 mg PO BID amLODIPine [Norvasc] 10 mg PO DAILY Multivitamins, Thera [Multivitamin (formulary)] 1 tab PO DAILY Metoprolol Succinate [Toprol XL] 100 mg PO DAILY Beclomethasone Dip 80 Mcg/Puff [Qvar 80 mcg] 1 puff INHALATION RT-BID Albuterol Sulfate [Ventolin HFA] 1 - 2 puff INHALATION RT-Q6H PRN PRN Reason: Shortness Of Breath Loratadine [Claritin] 10 mg PO DAILY Turkmen Panax Ginseng 1 tab PO DAILY Omeprazole 20 mg PO DAILY 30 Days #30 cap Pantoprazole [Protonix] 40 mg PO DAILY 30 Days #30 tablet.dr Changed Ondansetron HCl [Zofran] 8 mg PO BID #12 tab Discontinued traZODone HCL 50 mg PO HS Discharge Medication List Gabapentin [Neurontin] 300 mg PO TID 01/22/18 [History] buPROPion [Wellbutrin] 100 mg PO BID 01/22/18 [History] Albuterol Sulfate [Ventolin HFA] 1 - 2 puff INHALATION RT-Q6H PRN 12/21/18 [History] Beclomethasone Dip 80 Mcg/Puff [Qvar 80 mcg] 1 puff INHALATION RT-BID 12/21/18 [History] Turkmen Panax Ginseng 1 tab PO DAILY 12/21/18 [History] Loratadine [Claritin] 10 mg PO DAILY 12/21/18 [History] Metoprolol Succinate [Toprol XL] 100 mg PO DAILY 12/21/18 [History] Multivitamins, Thera [Multivitamin (formulary)] 1 tab PO DAILY 12/21/18 [History] amLODIPine [Norvasc] 10 mg PO DAILY 12/21/18 [History] busPIRone HCL 15 mg PO BID 12/21/18 [History] Fluconazole [Diflucan] 100 mg PO DAILY 5 Days #5 tab 12/24/18 [Rx] LORazepam [Ativan] 1 mg PO TID PRN #12 tab 12/24/18 [Rx] Omeprazole 20 mg PO DAILY 30 Days #30 cap 12/24/18 [Rx] Ondansetron HCl [Zofran] 8 mg PO BID #12 tab 12/24/18 [Rx] Oxybutynin Xl [Ditropan XL] 10 mg PO DAILY 30 Days #30 tab.er.24 12/24/18 [Rx] Pantoprazole [Protonix] 40 mg PO DAILY 30 Days #30 tablet.dr 12/24/18 [Rx] Thiamine [Vitamin B-1] 100 mg PO BID-W/MEALS 30 Days #60 tab 12/24/18 [Rx] chlordiazePOXIDE HCl [Librium] 25 mg PO TID #16 cap 12/24/18 [Rx] Follow up Appointment(s)/Referral(s): Mackenzie Reed MD [Primary Care Provider] - 1-2 days (call for appointment, or walk in) Patient Instructions/Handouts: Oxybutynin (By mouth), Lorazepam (By mouth), Omeprazole (By mouth), Thiamine (By mouth), Fluconazole (By mouth), Ondansetron (By mouth), Acute Nausea and Vomiting (DC), Alcohol Withdrawal (DC), Abdominal Pain (ED), Hematemesis (ED) Activity/Diet/Wound Care/Special Instructions: activity limited until follow up follow up with pcp this week follow up with [facility] and admission on as discussed avoid all alcohol intake continue current diet and advance as tolerated Discharge Disposition: HOME SELF-CARE
== END 2018-12-24 11:23 | disposition home or self-care (01) | DRG 896 ==
LOC: EC 21:05 → 3NMEDONC 23:33 → OBSVTOIN 12-22 13:50
PROVIDERS: ADMIT Hospitalist; ATTEND Hospitalist
DX: F10.239 Alcohol dependence with withdrawal, unspecified (principal); K29.21 Alcoholic gastritis with bleeding; B37.81 Candidal esophagitis; J44.1 Chronic obstructive pulmonary disease with (acute) exacerbation; B37.0 Candidal stomatitis; G62.1 Alcoholic polyneuropathy; R13.10 Dysphagia, unspecified; K70.10 Alcoholic hepatitis without ascites; I10 Essential (primary) hypertension; E86.0 Dehydration; R32 Unspecified urinary incontinence; F32.9 Major depressive disorder, single episode, unspecified; F41.9 Anxiety disorder, unspecified; E66.9 Obesity, unspecified; Z68.29 Body mass index [BMI] 29.0-29.9, adult; F17.200 Nicotine dependence, unspecified, uncomplicated; Z71.6 Tobacco abuse counseling; Z79.51 Long term (current) use of inhaled steroids; Z79.899 Other long term (current) drug therapy; Z87.19 Personal history of other diseases of the digestive system; Z88.8 Allergy status to other drugs, medicaments and biological substances
CPT/HCPCS: 36415; 74019; 80053; 81001; 81025; 82150; 83605; 83690; 83735; 85025; 85027; 85610; 85730; 86850; 86900; 86901; 93005; 94640; 96361; 96372; 96374; 96376; 99285

== ENCOUNTER → 2019-09-17 | Outpatient (CLI) | payer OTHER ==
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
== END | disposition home or self-care (01) ==
LOC: RAD 15:49
PROVIDERS: ATTEND Nurse Practitioner Family
DX: M16.0 Bilateral primary osteoarthritis of hip (principal); M24.151 Other articular cartilage disorders, right hip; M25.552 Pain in left hip
CPT/HCPCS: 73521

== ENCOUNTER → 2019-09-23 | Outpatient (CLI) | payer OTHER ==
[2019-09-23 09:49] LABS: Basophils # (A) 0.1 k/uL (0-0.2); Basophils % (A) 1 %; Eosinophils # (A) 0.3 k/uL (0-0.7); Eosinophils % (A) 3 %; HCT 47.1 % (34.0-46.0); HGB 15.5 gm/dL (11.4-16.0); Lymphocytes # (A) 1.9 k/uL (1.0-4.8); Lymphocytes % (A) 22 %; MCH 30.5 pg (25.0-35.0); MCV 92.4 fL (80.0-100.0); Monocytes # (A) 0.5 k/uL (0-1.0); Monocytes % (A) 5 %; Neutrophils # (A) 5.7 k/uL (1.3-7.7); Neutrophils % (A) 67 %; Platelet Count 247 k/uL (150-450); RBC 5.09 m/uL (3.80-5.40); RDW 14.4 % (11.5-15.5); WBC 8.5 k/uL (3.8-10.6)
[2019-09-23 16:33] LABS: African American GFR (CKD) 104.7 (60.0-200.0); Albumin 4.5 g/dL (3.80-4.90); Albumin/Globulin Ratio 2.05 (1.60-3.17); Anion Gap 3.7 mmol/L (4.00-12.00); BUN/Creat Ratio 11.25 Ratio (12.00-20.00); Calcium 9.9 mg/dL (8.7-10.3); Carbon Dioxide 26.3 mmol/L (21.6-31.8); Chol/HDL Ratio 3.31; Globulin 2.2 g/dL (1.6-3.3); LDL Cholesterol,Calculated 117.6 mg/dL (0.0-131.0); Non-African American GFR(CKD) 90.3 (60.0-200.0); Potassium 4.3 mmol/L (3.5-5.5); Total Bilirubin 0.9 mg/dL (0.2-1.2); Total Protein 6.7 g/dL (6.2-8.2); VLDL Calculation 16.4 mg/dL (5.00-40.00)
[2019-09-23 16:55] LABS: Hepatitis B Surface Antibody Reactive (Non-Reactive); Hepatitis B Surface Antigen Non-Reactive (Non-Reactive); Hepatitis C IgG Antibody Non-Reactive (Non-Reactive)
[2019-09-23 19:25] LABS: HIV 2 AB Non-Reactive (Non-Reactive); HIV AB P24 Non-Reactive (Non-Reactive); HIV P24 AG Non-Reactive (Non-Reactive)
[2019-09-24 13:31] LABS: Hepatits C Virus RNA Not detected (Not detected); Hepatits C Virus RNA, Quant <12 IU/mL (<12); LOG HCV IU/mL <1.08 (<1.08)
== END | disposition home or self-care (01) ==
LOC: LABWHC1 07:52
PROVIDERS: ATTEND Nurse Practitioner Family
DX: R74.8 Abnormal levels of other serum enzymes (principal); Z83.0 Family history of human immunodeficiency virus [HIV] disease
CPT/HCPCS: 36415; 80053; 80061; 85025; 86706; 86780; 86803; 87340; 87390; 87522

== ENCOUNTER 2023-08-14 03:28 | Emergency (ER) | payer OTHER ==
[2023-08-14 03:45] VITALS: RESP 16
[2023-08-14] MEDS: ALBUTEROL NEBULIZED 2.5 MG/3 ML INHALATION STA (04:15)
--- NOTE | 2023-08-14 04:25 | ED ---
General Adult HPI - General Chief complaint: Recheck/Abnormal Lab/Rx Stated complaint: Asthma Time Seen by Provider: 08/14/23 03:56 Source: patient Mode of arrival: ambulatory Limitations: no limitations - History of Present Illness Initial comments: Patient is a 47-year-old woman who presents with complaint that she is having wheezing and cough consistent with usual asthma flareup. The patient states that she is currently out of her albuterol inhaler. Patient denies fever or chills. No sputum production. No chest pain. -: hour(s) Severity scale (1-10): 0 Consistency: constant Improves with: none Worsens with: none Associated Symptoms: cough Treatments Prior to Arrival: none - Related Data Home Medications Medication Instructions Recorded Confirmed Gabapentin [Neurontin] 300 mg PO TID 01/22/18 12/21/18 buPROPion [Wellbutrin] 100 mg PO BID 01/22/18 12/21/18 Albuterol Sulfate [Ventolin HFA] 1 - 2 puff INHALATION RT-Q6H PRN 12/21/18 12/21/18 Beclomethasone Dip 80 Mcg/Puff 1 puff INHALATION RT-BID 12/21/18 12/21/18 [Qvar 80 mcg] Indonesian Panax Ginseng 1 tab PO DAILY 12/21/18 12/21/18 Loratadine [Claritin] 10 mg PO DAILY 12/21/18 12/21/18 Metoprolol Succinate [Toprol XL] 100 mg PO DAILY 12/21/18 12/21/18 Multivitamins, Thera [Multivitamin 1 tab PO DAILY 12/21/18 12/21/18 (formulary)] amLODIPine [Norvasc] 10 mg PO DAILY 12/21/18 12/21/18 busPIRone HCL 15 mg PO BID 12/21/18 12/21/18 Previous Rx's Medication Instructions Recorded Fluconazole [Diflucan] 100 mg PO DAILY 5 Days #5 tab 12/24/18 LORazepam [Ativan] 1 mg PO TID PRN #12 tab 12/24/18 Omeprazole 20 mg PO DAILY 30 Days #30 cap 12/24/18 Oxybutynin Xl [Ditropan XL] 10 mg PO DAILY 30 Days #30 12/24/18 tab.er.[id number] Pantoprazole [Protonix] 40 mg PO DAILY 30 Days #30 12/24/18 tablet. Thiamine [Vitamin B-1] 100 mg PO BID-W/MEALS 30 Days #60 12/24/18 tab chlordiazePOXIDE HCl [Librium] 25 mg PO TID #16 cap 12/24/18 ondansetron HCL [Zofran] 8 mg PO BID #12 tab 12/24/18 Albuterol Inhaler [Ventolin Hfa 2 puff INHALATION Q4HR PRN #8 gm 08/14/23 Inhaler] Fluticasone Propion/Salmeterol 1 inhalation PO BID #1 each 08/14/23 [Advair 250-50 Diskus] Allergies Allergy/AdvReac Type Severity Reaction Status Date / Time ELLA Inhibitors Allergy Rash/Hives Verified 08/14/23 03:42 Review of Systems ROS Statement: Those systems with pertinent positive or pertinent negative responses have been documented in the HPI. ROS Other: All systems not noted in ROS Statement are negative. Constitutional: Denies: fever, chills, weakness Respiratory: Reports: cough, wheezes Cardiovascular: Denies: chest pain, palpitations, edema, syncope Gastrointestinal: Denies: abdominal pain, nausea, vomiting Genitourinary: Denies: dysuria, hematuria Musculoskeletal: Denies: back pain Skin: Denies: rash Neurological: Denies: headache, weakness Past Medical History Past Medical History: Asthma, GERD/Reflux, Hypertension, Liver Disease, Osteoarthritis (OA) Additional Past Medical History / Comment(s): alcoholic neuropathy, pancreatitis History of Any Multi-Drug Resistant Organisms: None Reported Past Surgical History: Joint Replacement Additional Past Surgical History / Comment(s): hip Past Anesthesia/Blood Transfusion Reactions: No Reported Reaction Past Psychological History: Anxiety, Depression Smoking Status: Current every day smoker Past Alcohol Use History: None Reported Past Drug Use History: Marijuana - Past Family History Father Family Medical History: No Reported History General Exam Limitations: no limitations General appearance: alert, in no apparent distress Head exam: Present: atraumatic, normocephalic Eye exam: Present: normal appearance. Absent: scleral icterus, conjunctival injection Respiratory exam: Present: wheezes. Absent: respiratory distress, rales, rhonchi, stridor, accessory muscle use Cardiovascular Exam: Present: regular rate, normal rhythm, normal heart sounds. Absent: systolic murmur, diastolic murmur, rubs, gallop Extremities exam: Present: normal inspection, normal capillary refill. Absent: pedal edema, calf tenderness Neurological exam: Present: alert Skin exam: Present: warm, dry, intact, normal color. Absent: rash Course Vital Signs 08/14/23 08/14/23 08/14/23 03:42 04:15 04:23 Temperature 98.2 F Pulse Rate 69 68 65 Respiratory 16 Rate Blood Pressure 110/73 O2 Sat by Pulse 96 Oximetry 08/14/23 04:40 Temperature 97.8 F Pulse Rate 67 Respiratory 16 Rate Blood Pressure 110/71 O2 Sat by Pulse 93 L Oximetry Medical Decision Making - Medical Decision Making Was pt. sent in by a medical professional or institution (, PA, CERTIFIED DIETARY MANAGER, urgent care, hospital, or long term...) When possible be specific @ -[No] Did you speak to anyone other than the patient for history (EMS, parent, family, police, friend...)? What history was obtained from this source @ -[No] Did you review nursing and triage notes (agree or disagree)? Why? @ -[I reviewed and agree with nursing and triage notes] Were old charts reviewed (outside hosp., previous admission, EMS record, old EKG, old radiological studies, urgent care reports/EKG's, long term records)? Report findings @ -[No old charts were reviewed] Differential Diagnosis (chest pain, altered mental status, abdominal pain women, abdominal pain men, vaginal bleeding, weakness, fever, dyspnea, syncope, headache, dizziness, GI bleed, back pain, seizure, CVA, palpatations, mental health, musculoskeletal)? @ -[Differential Dyspnea: Coronary syndrome, arrhythmia, tamponade, asthma, COPD, pulmonary embolism, pneumonia, pneumothorax, pulmonary effusion, anaphylaxis, diabetic ketoacidosis, flailed chest, pulmonary contusion, diaphragmatic rupture, anemia, neuromuscular, this is not meant to be an all-inclusive list. EKG interpreted by me (3pts min.). @ -[As above] X-rays interpreted by me (1pt min.). @ -[None done] CT interpreted by me (1pt min.). @ -[None done] U/S interpreted by me (1pt. min.). @ -[None done] What testing was considered but not performed or refused? (CT, X-rays, U/S, labs)? Why? @ -[None] What meds were considered but not given or refused? Why? @ -[None] Did you discuss the management of the patient with other professionals (professionals i.e. , PA, CERTIFIED DIETARY MANAGER, lab, RT, psych nurse, social insurance specialist, rental sales associate, teacher, state wildlife officer, casework manager)? Give summary @ -[No] Was smoking cessation discussed for >3mins.? @ -[No] Was critical care preformed (if so, how long)? @ -[No] Were there social determinants of health that impacted care today? How? (Homelessness, low income, unemployed, alcoholism, drug addiction, transportation, low edu. Level, literacy, decrease access to med. care, retirement, rehab)? @ -[No] Was there de-escalation of care discussed even if they declined (Discuss DNR or withdrawal of care, Hospice)? DNR status @ -[No] What co-morbidities impacted this encounter? (DM, HTN, Smoking, COPD, CAD, Cancer, CVA, ARF, Chemo, Hep., AIDS, mental health diagnosis, sleep apnea, morbid obesity)? @ -[Asthma Was patient admitted / discharged? Hospital course, mention meds given and route, prescriptions, significant lab abnormalities, going to OR and other pertinent info. @ -[Patient is a 47-year-old woman with history of asthma. She states this exacerbation similar to previous ones. She states mainly here to have refill of her medication. Patient feeling better with treatment here, discussed appropriate further care and follow-up as well as return parameters. Undiagnosed new problem with uncertain prognosis? @ -[No] Drug Therapy requiring intensive monitoring for toxicity (Heparin, Nitro, Insulin, Cardizem)? @ -[No] Were any procedures done? @ -[No] Diagnosis/symptom? @ -Acute exacerbation of asthma Acute, or Chronic, or Acute on Chronic? @ -[Acute on chronic Uncomplicated (without systemic symptoms) or Complicated (systemic symptoms)? @ -[Uncomplicated Side effects of treatment? @ -[No] Exacerbation, Progression, or Severe Exacerbation? @ -[Exacerbation Poses a threat to life or bodily function? How? (Chest pain, [place], [place], pneumonia, PE, COPD, DKA, ARF, appy, cholecystitis, CVA, Diverticulitis, Homicidal, Suicidal, threat to staff... and all critical care pts) @ -[No] Disposition Clinical Impression: Asthma exacerbation Disposition: HOME SELF-CARE Condition: Good Instructions (If sedation given, give patient instructions): Asthma (ED) Prescriptions: Fluticasone Propion/Salmeterol [Advair 250-50 Diskus] 1 inhalation PO BID #1 each Albuterol Inhaler [Ventolin Hfa Inhaler] 2 puff INHALATION Q4HR PRN #8 gm PRN Reason: Wheezing Is patient prescribed a controlled substance at d/c from ED?: No Referrals: None,Stated [Primary Care Provider] - 1-2 days
[2023-08-14 04:41] VITALS: BP 110/71; PULSE 67; TEMP 97.8
== END 2023-08-14 04:39 | disposition home or self-care (01) ==
LOC: EC 03:28
DX: J45.901 Unspecified asthma with (acute) exacerbation (principal); F17.200 Nicotine dependence, unspecified, uncomplicated; Z88.8 Allergy status to other drugs, medicaments and biological substances; Z79.51 Long term (current) use of inhaled steroids; Z79.899 Other long term (current) drug therapy
CPT/HCPCS: 94640; 99284